=== PATIENT | male | born 1950 | race Caucasian/White ===

== ENCOUNTER → 2018-05-05 10:17 | Outpatient (CLI) | payer MEDICARE, SELFPAY ==
[2018-05-05 10:51] LABS: Add Manual Diff / Slide Review NO; Basophils Percent Auto 0.6 % (0-2); Eosinophils Percent Auto 5.5 % (2-4); Hematocrit 44.9 % (41-53); Hemoglobin 15.4 g/dL (13.5-17.5); Lymphocytes Percent Auto 15.1 % (25-40); Mean Corpuscular HGB Conc 34.3 % (30-36); Mean Corpuscular Hemoglobin 34.1 PG (26-34); Mean Corpuscular Volume 99.5 fL (80-100); Monocytes Percent Auto 8.8 % (3-14); Neutrophils Absolute Auto 4800 /uL (3000-5900); Platelet Count 132 X10^3/uL (150-400); Red Blood Cell Count 4.51 X10^6/uL (4.5-5.9); Red Cell Distribution Width 13.8 % (11.6-14.8); White Blood Cell Count 6.8 X10^3/uL (4.5-11.0)
[2018-05-05 11:04] LABS: Erythrocyte Sedimentation Rate 11 MM/HR (0-15)
[2018-05-05 11:13] LABS: Alanine Aminotransferase 54 IU/L (21-72); Albumin 3.9 g/dL (3.5-5.0); Albumin Globulin Ratio 1.4 (1.0-2.8); Alkaline Phosphatase 88 U/L (38-126); Aspartate Aminotransferase 37 IU/L (17-59); BUN Creatinine Ratio 24.5 (6-22); Bilirubin Total 0.9 mg/dL (0.2-1.3); Blood Urea Nitrogen 27 mg/dL (9-20); Calcium 9.7 mg/dL (8.4-10.2); Carbon Dioxide 31 mmol/L (22-32); Chloride 104 mmol/L (98-107); Cholesterol 156 mg/dL (140-199); Estimated Glomerular Filt Rate > 60.0 mL/min (>60); Globulin 2.8 g/dL (1.7-4.1); Glucose 112 mg/dL (80-110); HDL Cholesterol 40 mg/dL (40-60); HEMOLYSIS < 15 (0-50); LDL Cholesterol Calculated 79 mg/dL (<100); Potassium 4.5 mmol/L (3.4-5.1); Sodium 143 mmol/L (137-145); Total Protein 6.7 g/dL (6.3-8.2); Triglycerides 184 mg/dL (35-150)
[2018-05-05 11:40] LABS: TSH w/ Reflex to FT4 0.19 uIU/mL (0.47-4.68)
[2018-05-05 11:41] LABS: Prostate Specific Antigen Scrn 2.09 ng/mL (0.1-4.0)
[2018-05-05 13:02] LABS: Free T4, Direct Thyroxine 1.65 ng/dL (0.78-2.19)
== END ==
PROVIDERS: PCP Internal Medicine; Visit Provider Internal Medicine
DX: E03.9 Hypothyroidism, unspecified (principal); I25.10 Atherosclerotic heart disease of native coronary artery without angina pectoris; M15.0 Primary generalized (osteo)arthritis
CPT/HCPCS: 36415; 80053; 80061; 84439; 84443; 85025; 85651; G0103

== ENCOUNTER → 2018-06-05 10:25 | Outpatient (CLI) | payer MEDICARE, SELFPAY ==
--- NOTE | 2018-06-05 | DI.RAD.S_ITS ---
PROCEDURE: XR CHEST 2V INDICATIONS: dyspnea TECHNIQUE: 2 views of the chest were acquired. COMPARISON: None. FINDINGS: Surgical changes and devices: Median sternotomy and CABG. Surgical clips right lower neck. Possible clip right upper quadrant. Lungs and pleura: No pleural effusions or pneumothorax. Lungs are clear. Mediastinum: Mediastinal contours are normal. Heart size is normal. Tortuous aorta. Bones and chest wall: No suspicious bony abnormalities. Soft tissues appear unremarkable. IMPRESSION: Postoperative changes, no acute cardiopulmonary abnormality Dictated by: Ayush Gordon M.D. on 06/05/2018 at 10:53 Approved by: Ayush Gordon M.D. on 06/05/2018 at 10:54
--- NOTE | 2018-06-05 | DI.RAD.S_ITS ---
PROCEDURE: XR KNEE LT 3V INDICATIONS: knee pain TECHNIQUE: 3 views of the knee were acquired. COMPARISON: None. FINDINGS: Bones: No fractures or dislocations. No suspicious bony lesions. Degenerative hip joint space narrowing and marginal spurring in all 3 compartments. Soft tissues: No joint effusion. No suspicious soft tissue calcifications. IMPRESSION: 1. No joint effusion or acute bony abnormality. 2. Tricompartmental osteoarthritis Dictated by: Ayush Gordon M.D. on 06/05/2018 at 10:56 Approved by: Ayush Gordon M.D. on 06/05/2018 at 10:57
--- NOTE | 2018-06-05 | DI.RAD.S_ITS ---
PROCEDURE: XR HIP W PEL IF DONE BILAT 2V INDICATIONS: hip pain TECHNIQUE: AP pelvis with lateral view(s) of the bilateral hip(s). COMPARISON: None. FINDINGS: Bones: No fractures or dislocations. Pelvic ring appears intact. No suspicious bony lesions. There is moderate, symmetrical degenerative hip joint disease with narrowing and marginal spurring. Soft tissues: The visualized bowel gas pattern is normal. No suspicious soft tissue calcifications. IMPRESSION: No acute bony abnormality. Bilateral grade 2 degenerative hip joint disease. Dictated by: Ayush Gordon M.D. on 06/05/2018 at 10:54 Approved by: Ayush Gordon M.D. on 06/05/2018 at 10:56
== END ==
PROVIDERS: Family Provider Internal Medicine; PCP Internal Medicine; Visit Provider Internal Medicine
DX: M16.0 Bilateral primary osteoarthritis of hip (principal); R06.00 Dyspnea, unspecified; M17.12 Unilateral primary osteoarthritis, left knee; M25.562 Pain in left knee
CPT/HCPCS: 71046; 73521; 73562

== ENCOUNTER → 2018-06-06 14:51 | Outpatient (CLI) | payer MEDICARE, SELFPAY ==
--- NOTE | 2018-06-13 08:16 | PM.PFT.1 ---
Pulmonary Function Test Referral & Results Date Patient Seen: 06/06/18 Requesting provider: Meet Umaña Indication: COPD Results: The spirometry demonstrates an FVC of 2.3 L which is 46% of predicted. The FEV1 was measured at 1.78 L which is 46% of predicted. The FEV1/FVC ratio was 75 which is 100% of predicted. Following the administration of bronchodilator there was 9% improvement in FEV1 and a 30% improvement in FEF 25-75%. Lung volumes show an SVC of 2.65 L which is 51% of predicted. The diffusing capacity was measured at 26.59 which is 70% of predicted. No hemoglobin value was provided, so no correction for potential anemia could be made, if appropriate. The maximum voluntary ventilation was reduced. Interpretation: This study demonstrates moderately severe obstructive lung disease with significant reduction in FEV1 although there was some limited improvement following bronchodilator based primarily on improvement in FEF 25-75% thus suggesting small airway flow improvement There is also moderate restrictive lung disease present based on reduction in lung volumes There is also reduction in diffusing capacity suggesting some element of disease at the capillary alveolar level Altogether this is consistent with a diagnosis of COPD Clinical correlation suggested
--- NOTE | 2018-06-13 08:19 | P.PFT.S_ITS ---
Pulmonary Function Test Referral & Results Date Patient Seen: 06/06/18 Requesting provider: Meet Umaña Indication: COPD Results: The spirometry demonstrates an FVC of 2.3 L which is 46% of predicted. The FEV1 was measured at 1.78 L which is 46% of predicted. The FEV1/FVC ratio was 75 which is 100% of predicted. Following the administration of bronchodilator there was 9% improvement in FEV1 and a 30% improvement in FEF 25-75%. Lung volumes show an SVC of 2.65 L which is 51% of predicted. The diffusing capacity was measured at 26.59 which is 70% of predicted. No hemoglobin value was provided, so no correction for potential anemia could be made, if appropriate. The maximum voluntary ventilation was reduced. Interpretation: This study demonstrates moderately severe obstructive lung disease with significant reduction in FEV1 although there was some limited improvement following bronchodilator based primarily on improvement in FEF 25-75 % thus suggesting small airway flow improvement There is also moderate restrictive lung disease present based on reduction in lung volumes There is also reduction in diffusing capacity suggesting some element of disease at the capillary alveolar level Altogether this is consistent with a diagnosis of COPD Clinical correlation suggested
== END ==
PROVIDERS: Family Provider Internal Medicine; PCP Internal Medicine; Visit Provider Internal Medicine
DX: J44.9 Chronic obstructive pulmonary disease, unspecified (principal)
CPT/HCPCS: 94010; 94060; 94726; 94729

== ENCOUNTER → 2018-06-24 10:06 | Outpatient (CLI) | payer MEDICARE, SELFPAY ==
--- NOTE | 2018-06-24 | DI.CT.S_ITS ---
PROCEDURE: CT CHEST HIGH RESOLUTION INDICATIONS: RESTRICTIVE LUNG DISEASE. SHORT OF BREATH TECHNIQUE: Noncontrast 1.0 and 5.0 mm thick contiguous axial sections from the pulmonary apex to the posterior costophrenic angles, with 7 mm thick coronal and sagittal MIP reformats. 1 mm thick dynamic expiratory images acquired through the upper, mid, and lower lungs. 1.0 mm thick axial sections acquired from the ty to the posterior costophrenic angles in the prone end-inspiration position. For radiation dose reduction, the following was used: automated exposure control, adjustment of mA and/or kV according to patient size. COMPARISON: None. FINDINGS: Image quality: Excellent. Lungs: No acute consolidation. No areas of honeycombing are identified. There are scattered areas of presumed postinflammatory nonspecific scarring/atelectasis, primarily within the lingula and right middle lobe. There is central bronchial wall no definite bronchiectasis seen. Airways appear grossly patent. No definite mosaic lung attenuation. No tree in bud opacities are seen. thickening. Mild cephalization suggestive of chronic pulmonary venous hypertension. Pleura: No pleural effusions or pneumothorax. Mediastinum: Heart size is normal. There are coronary artery calcifications. No pericardial effusion. Thoracic aorta and central pulmonary arteries are normal in size. Esophagus is normal in caliber. Bones and chest wall: No suspicious bony lesions. No vertebral body compression fractures. Abdomen: Visualized upper abdominal solid organs and bowel loops appear normal. IMPRESSION: Mild scattered nonspecific postinflammatory scarring/atelectasis in the anterior lung bases. No areas of honeycombing are seen. Central bronchial wall thickening suggestive of reactive airways disease or nonspecific bronchitis. Coronary artery disease. Dictated by: Jose Angel Veliz M.D. on 06/24/2018 at 13:23 Approved by: Jose Angel Veliz M.D. on 06/24/2018 at 13:28
== END ==
PROVIDERS: Family Provider Internal Medicine; PCP Internal Medicine; Visit Provider Internal Medicine
DX: J98.4 Other disorders of lung (principal); R06.02 Shortness of breath; I25.10 Atherosclerotic heart disease of native coronary artery without angina pectoris
CPT/HCPCS: 71250

== ENCOUNTER → 2018-07-22 11:59 | Outpatient (CLI) | payer MEDICARE, SELFPAY ==
--- NOTE | 2018-07-22 | DI.MRI.S_ITS ---
PROCEDURE: MR LUMBAR SPINE WO CON INDICATIONS: SPINAL STENOSIS OF LUMBAR REGION TECHNIQUE: Noncontrast sagittal T1 spin echo and T2 fast echo, sagittal STIR, axial T1 and T2 fast spin echo through the lumbar spine. In cases with scoliosis, additional coronal T2 fast spin echo may be performed. COMPARISON: None. FINDINGS: Image quality: Mild motion degraded examination. Alignment and Curvature: Trace retrolisthesis of L1 on L2 and L2 on L3. Grade 1 retrolisthesis of L3 on L4. Bone Marrow: Marrow is of normal overall signal. No acute vertebral body compression fractures. Chronic appearing mild anterior wedging of T12 which could be physiologic. Spinal Cord: Conus medullaris terminates at the T12-L1 level. Visualized cord demonstrates normal signal and size. Paraspinous Soft Tissues: No paravertebral masses. There is dependent subcutaneous edema seen at the level of L3-S1 L1-L2: Posterior annular fissure is seen. There is superimposed small left paracentral disc protrusion as well as bilateral facet disease. Minimal central canal narrowing. There is asymmetric partial effacement of the left lateral recess. Mild bilateral foraminal narrowing. L2-L3: Mild broad-based posterior disc bulge and bilateral facet arthropathy. Postsurgical changes related to L2 laminectomy. No residual high-grade canal stenosis is seen. Moderate-severe left foraminal stenosis. Mild right foraminal narrowing. L3-L4: Broad-based posterior disc bulge and bilateral facet arthropathy. Dorsal epidural fat is also present resulting in severe canal narrowing. Bilateral symmetric left and right lateral recess narrowing is also present. Mild left and severe right foraminal stenosis L4-L5: Broad-based posterior disc bulge and bilateral facet disease. There is mild dorsal and ventral epidural fat resulting in [id number] canal narrowing. There is symmetric narrowing of the left and right lateral recess. Moderate left and moderate to severe right foraminal narrowing L5-S1: Broad-based posterior disc bulge and bilateral facet disease. Prominent dorsal epidural fat is seen, with associated severe canal narrowing. There is effacement of both lateral recesses due to epidural fat. Severe left and right foraminal stenoses IMPRESSION: Multilevel lumbar disc degeneration and facet arthropathy with prominent epidural lipomatosis primarily from the level of L3-S1. Severe canal stenosis at L3-L4 and L5-S1, contributed in part by prominent epidural fat. Moderate to severe left L2-L3 foraminal stenosis. Severe right L3-L4 foraminal stenosis. Moderate to severe bilateral L4-L5 foraminal stenoses, right greater than left. Severe bilateral L5-S1 foraminal stenoses. Status post L2 laminotomy. Dictated by: Jose Angel Veliz M.D. on 07/22/2018 at 14:33 Approved by: Jose Angel Veliz M.D. on 07/22/2018 at 14:45
== END ==
PROVIDERS: PCP Internal Medicine; Visit Provider Orthopaedic Surgery
DX: M48.061 Spinal stenosis, lumbar region without neurogenic claudication (principal); M51.36 Other intervertebral disc degeneration, lumbar region; M51.37 Other intervertebral disc degeneration, lumbosacral region; M47.816 Spondylosis without myelopathy or radiculopathy, lumbar region; M48.07 Spinal stenosis, lumbosacral region; E88.2 Lipomatosis, not elsewhere classified
CPT/HCPCS: 72148

== ENCOUNTER → 2019-05-12 08:29 | Outpatient (CLI) | payer MEDICARE, SELFPAY ==
[2019-05-12 09:27] LABS: Add Manual Diff / Slide Review NO; Basophils Absolute Auto 0 /uL (0-100); Basophils Percent Auto 0.6 % (0-2); Eosinophils Absolute Auto 400 /uL (0-450); Eosinophils Percent Auto 5.8 % (2-4); Hematocrit 44.7 % (41-53); Hemoglobin 15.3 g/dL (13.5-17.5); Lymphocytes Absolute Auto 1300 /uL (1100-4500); Lymphocytes Percent Auto 20.8 % (25-40); Mean Corpuscular HGB Conc 34.2 % (30-36); Mean Corpuscular Volume 99.6 fL (80-100); Monocytes Absolute Auto 600 /uL (0-900); Monocytes Percent Auto 8.5 % (3-14); Neutrophils Absolute Auto 4200 /uL (1500-7000); Neutrophils Percent Auto 64.3 % (50-75); Platelet Count 141 X10^3/uL (150-400); Red Blood Cell Count 4.49 X10^6/uL (4.5-5.9); Red Cell Distribution Width 14.1 % (11.6-14.8); White Blood Cell Count 6.5 X10^3/uL (4.5-11.0)
[2019-05-12 10:03] LABS: Alanine Aminotransferase 43 IU/L (21-72); Albumin 4.1 g/dL (3.5-5.0); Albumin Globulin Ratio 1.2 (1.0-2.8); Alkaline Phosphatase 108 U/L (38-126); Aspartate Aminotransferase 37 IU/L (17-59); BUN Creatinine Ratio 19.1 (6-22); Bilirubin Total 0.7 mg/dL (0.2-1.3); Blood Urea Nitrogen 21 mg/dL (9-20); Calcium 9.3 mg/dL (8.4-10.2); Carbon Dioxide 27 mmol/L (22-32); Chloride 105 mmol/L (98-107); Cholesterol 146 mg/dL (140-199); Estimated Glomerular Filt Rate > 60.0 mL/min (>60); Globulin 3.3 g/dL (1.7-4.1); Glucose 109 mg/dL (80-110); HDL Cholesterol 30 mg/dL (40-60); HEMOLYSIS < 15 (0-50); LDL Cholesterol Calculated 62 mg/dL (<100); Potassium 4.3 mmol/L (3.4-5.1); Sodium 141 mmol/L (137-145); Total Protein 7.4 g/dL (6.3-8.2); Triglycerides 271 mg/dL (35-150)
[2019-05-12 10:28] LABS: TSH w/ Reflex to FT4 0.03 uIU/mL (0.47-4.68)
[2019-05-12 11:13] LABS: Free T4, Direct Thyroxine 1.23 ng/dL (0.78-2.19)
== END ==
PROVIDERS: PCP Internal Medicine; Visit Provider Internal Medicine
DX: I25.10 Atherosclerotic heart disease of native coronary artery without angina pectoris (principal); M15.0 Primary generalized (osteo)arthritis; E78.00 Pure hypercholesterolemia, unspecified; E66.9 Obesity, unspecified; N18.9 Chronic kidney disease, unspecified; E03.9 Hypothyroidism, unspecified
CPT/HCPCS: 36415; 80053; 80061; 84439; 84443; 85025

== ENCOUNTER 2019-06-02 10:19 | Inpatient (IN) | payer MEDICARE, SELFPAY ==
[2019-05-28 11:32] VITALS: BMI 38.4
[2019-06-02] VITALS (15 sets, daily range): BP systolic 107–148; BP diastolic 64–91; PULSE 63–69; RESP 12–18; TEMP 35.6–37.1; O2SAT 89–98; BMI 38.4
--- NOTE | 2019-06-02 | DI.RAD.S_ITS ---
PROCEDURE: XR LUMBAR SPINE 2-3V INDICATIONS: L4-5 TLIF TECHNIQUE: 3 views of the lumbar spine were acquired. COMPARISON: None. FINDINGS: Spot fluoroscopic images demonstrating L4-L5 posterior spinal fixation and interbody cage graft. There is expected intraoperative alignment. Dictated by: Jose Angel Veliz M.D. on 06/02/2019 at 16:50 Approved by: Jose Angel Veliz M.D. on 06/02/2019 at 16:51
[2019-06-02] MEDS: LACTATED RINGERS 1,000 ML 100 ML IV ×2 (10:39→15:39)
--- NOTE | 2019-06-02 11:53 | PM.PREOP ---
Pre-operative Note Interval Note History & Physical reviewed/Exam performed by Physician: Yes Changes to H&P: No
--- NOTE | 2019-06-02 11:54 | P.OP_ITS ---
Operative Date/Time/Diagnoses Date of procedure: 06/02/19 Time of procedure: 16:30 Pre-op diagnosis: Lumbar stenosis with radiculopathy History of lumbar laminectomy Post-op diagnosis: same Procedure & Clinicians Procedure: L4-5 anterior fusion with cage L4-5 posterior fusion L4, L5 screws Iliac crest bone graft L3-4 laminectomy Use of microscope Same procedure as scheduled: Yes Indications: [age] year old male with intractable pain from stenosis. They had failed conservative management and requested operative intervention. Risks and benefits of surgery were discussed and appropriate consents were obtained. Surgeon: Basilio Mcbride Sander And Buffer: Gertrude Jacobson Anesthesia Type: General Operative Notes Findings: None Closure Type: primary Specimen(s): none sent Prosthetic devices, grafts, tissues, transplants, or devices: NuVasive XLIF Matrix cage and MAS Reline screws Applied: catheter Estimated Blood Loss (mL): 20 Blood products transfused: none Procedure in detail: Patient was brought to the operating room and intubated on the table. Time-out was performed. They were then rolled over to the lateral decubitus position with the [id number]. The table was bent and they were taped down in the correct position. X-rays were taken to confirm a true AP and lateral. Preoperative antibiotics were given. The left flank was prepped and draped in standard sterile fashion. Using fluoroscopy, a 3 cm incision was made above the iliac crest. We bluntly dissected down with Metzenbaum scissors and split the 3 abdominal muscle layers. We dissected out the retroperitoneal space and using finger guidance, brought our 1st dilator down to the psoas muscle. Using neuromonitoring and fluoroscopy, we placed it through the psoas onto the L4-5 disc space in an anterior position and gradually pulled the dilator posteriorly along the disc space. We placed our guidewire and measured our depth for the retractor. We then dilated with the next 2 dilators and then placed our retractor over the dilators. Position was confirmed with fluoroscopy and the retractor was locked down to the bar. We opened up the retractor and checked with neuro monitoring. We then placed the shari and again checked with neuro monitoring. The retractor was opened further and the ALL retractor was placed. An annulotomy was performed. We then performed a complete diskectomy with ring curette, pituitary, box osteotome. A Robert was advanced across the disc space under fluoroscopy to release the lateral annulus on the opposite side. We then used sequentially larger trials and confirmed under fluoroscopy. An XLIF cage was packed with Osteocell bone graft and impacted into the L4-5 disc space with fluoroscopy for the anterior fusion at this level. The wound was irrigated. The retractor was closed down. The shari was removed. We carefully removed the retractor with direct visualization to make sure there was no neurovascular or abdominal injury. Final x-rays were taken. The muscle fascia was closed, superficial tissue was closed. The skin was closed. Sterile dressing was placed. The patient was then rolled over on the well-padded prone position on the Db table. Using fluoroscopy for localization, a 4 cm incision was made to the left of the midline. We used the Bovie to cut through the fascia. We then percutaneously placed Jamshidi needles down the left pedicles of L4 and L5 using fluoroscopy and neuro monitoring. We changed this to guidewires, tapped and then placed our MAS Reline screws. We then went over to the right side. Another 3 cm incision was made on the right side. We used Bovie to split the fascia. We again percutaneously placed Jamshidi needles, a guidewires, tapped, and then our MAS Reline screws into L4 and L5 on the right using fluoroscopy and neural monitoring. The wounds were copiously irrigated. We dissected down to the gutter at L45 and exposed the transverse processes on the left. These were decorticated with a bur. A small stab incision was made over the PSIS and a Jamshidi needle was placed into the iliac crest and several mL of bone marrow was aspirated. This was mixed with 15ml of bone chips as well as the remaining Osteocell and placed in the posterolateral gutter for fusion at L4-5. We then used our left-sided incision and dilators to approach the L3-4 space. We opened up our MaXcess retractor and cleared off the soft tissue. A marker was placed and x-ray was used to confirm positioning at L3-4. We then brought in the microscope. A laminectomy was performed at L3-4 with a bur and Kerrison rongeurs. There was a large amount of epidural lipomatosis combined with some mild scar from his previous laminectomies. We carefully depressed the dura to reach to the opposite side and decompress the entire yissel tral canal. We cleared out the neural foramen. In the end the ball probe could be placed cephalad and caudally across to the opposite side in the foramen and everything was opened. The retractor was closed down and removed. The fascia was closed. Vancomycin powder was placed in the wound. The superficial and skin were closed. Sterile dressing was placed. The patient was then rolled over, extubated, brought to the recovery room with no complications. Complications: none Condition: stable Disposition: PACU Plan for aftercare: Inpatient. Up with physical therapy.
[2019-06-02] MEDS: CEFAZOLIN VIAL 3 GM in SODIUM CHLORIDE 0.9% 100 ML 200 ML IV (12:45)
--- NOTE | 2019-06-02 13:41 | SUR.OPER ---
Lateral on padded OR bed, head on pillow, gel axillary roll in place, bottom leg bent with gel pad under knee to foot, upper leg bent and supported with pillows. Upper arm supported by pillows and secured over bottom arm to padded arm board. Safety belt at hip, tape over blanket lower legs.
--- NOTE | 2019-06-02 13:42 | SUR.OPER ---
Prone on spine table, head in foam head support, padded chest and pelvic supports, gel pad at knees, lower legs supported by pillows; nipples, genitalia and toes free of pressure, arms secured on foam padded arm boards at <90 degrees abduction. Tape over blanket at thigh secured to table.
[2019-06-02] MEDS: SODIUM CHLORIDE 0.9% 1,000 ML, GENTAMICIN 80 MG IRR (13:55)
[2019-06-02] MEDS: BUPIVACAINE 0.5% (PF) 20 ML, BUPIVACAINE LIPOSOME 266 MG INJ (13:56)
[2019-06-02] MEDS: THROMBIN (RECOMBINANT) 5,000 UNIT VIAL 5000 UNIT TOP (14:00)
--- NOTE | 2019-06-02 17:05 | SUR.OPER ---
Following procedure, noted 2 skin tears on patient's left side of face. First location under left eye approximately 0.75 inches wide. Second location on left medial cheek approximately 1 inch wide.
[2019-06-02] MEDS: OXYCODONE/ACETAMINOPHEN 5/325 TABLET 2 TAB PO (17:21)
[2019-06-02] MEDS: LACTATED RINGERS 1,000 ML 125 ML IV (18:35)
[2019-06-02] MEDS: CELECOXIB 200 MG CAPSULE 400 MG PO (18:57)
[2019-06-02] MEDS: CARVEDILOL 25 MG TABLET PO (21:15)
[2019-06-02] MEDS: SPIRONOLACTONE 25 MG TABLET 12.5 MG PO (21:16)
[2019-06-02] MEDS: CEFAZOLIN 2 GM/100 ML FROZ.PIGGY IV (21:16)
[2019-06-02] MEDS: DOCUSATE 100 MG CAPSULE PO (21:16)
[2019-06-02] MEDS: SENNOSIDES 8.6 MG TABLET 17.2 MG PO (21:16)
[2019-06-02] MEDS: LOSARTAN 50 MG TABLET PO (21:17)
[2019-06-02] MEDS: GABAPENTIN 300 MG CAPSULE PO (21:17)
[2019-06-02] MEDS: OXYCODONE/ACETAMINOPHEN 5/325 TABLET 1 TAB PO (21:42)
[2019-06-03] VITALS (7 sets, daily range): BP systolic 108–139; BP diastolic 65–93; PULSE 57–66; RESP 16–20; TEMP 36.4–36.9; O2SAT 95–98
[2019-06-03] MEDS: LACTATED RINGERS 1,000 ML 125 ML IV ×2 (02:27→10:55)
[2019-06-03] MEDS: OXYCODONE/ACETAMINOPHEN 5/325 TABLET 1 TAB PO ×5 (02:27→20:32)
[2019-06-03] MEDS: CEFAZOLIN 2 GM/100 ML FROZ.PIGGY IV (05:21)
[2019-06-03 06:41] LABS: Hematocrit 41.7 % (41-53); Hemoglobin 14.3 g/dL (13.5-17.5)
[2019-06-03 06:52] LABS: BUN Creatinine Ratio 21.8 (6-22); Blood Urea Nitrogen 24 mg/dL (9-20); Calcium 8.8 mg/dL (8.4-10.2); Carbon Dioxide 28 mmol/L (22-32); Chloride 104 mmol/L (98-107); Estimated Glomerular Filt Rate > 60.0 mL/min (>60); Glucose 145 mg/dL (80-110); HEMOLYSIS < 15 (0-50); Potassium 4.9 mmol/L (3.4-5.1); Sodium 139 mmol/L (137-145)
[2019-06-03] MEDS: LEVOTHYROXINE 125 MCG TABLET 250 MCG PO (07:01)
[2019-06-03] MEDS: LEVOTHYROXINE 25 MCG TABLET 12.5 MCG PO (07:01)
--- NOTE | 2019-06-03 08:02 | PM.PNPO.1 ---
Subjective Date Patient Seen: 06/03/19 Time Patient Seen: 08:02 Interval history: He is doing well. Pain is approximately 2/10. The left leg is feeling better with no more pins and needles and increased sensation. Exam Vital Signs (past 8 hours): - 06/03/19 00:20 06/03/19 04:34 Temperature 97.6 F 97.9 F Pulse Rate 66 63 Respiratory Rate 16 16 Blood Pressure 139/84 108/93 H Pulse Oximetry 98 98 Oxygen Delivery Method CPAP Oxygen Flow Rate 6 Const Orientation: alert and oriented x3 Back/Spine/Pelvis Other: Mild drainage on the right-hand side of the dressing. 5/5 motor both lower extremities Objective Labs Result Diagrams: 06/03/19 06:20 06/03/19 06:20 Labs: Laboratory Results - last 24 hr 06/03/19 06/03/19 06:20 06:20 Hgb 14.3 Hct 41.7 Sodium 139 Potassium 4.9 Chloride 104 Carbon Dioxide 28 BUN 24 H Creatinine 1.10 Estimated GFR > 60.0 BUN/Creatinine Ratio 21.8 Glucose 145 H Calcium 8.8 Assessment & Plan Post-op Postoperative Procedures Operation Date: 06/02/19 12:15 Actual Procedures Side Surgeon p L34 laminectomy, L45 anterior/posterior instrumented fusion w/ bone graft Basilio Mcbride MD He is doing very well. Mobilize with physical therapy today. Anticipate discharge home or Saturday. Recheck BMP tomorrow.
[2019-06-03] MEDS: FUROSEMIDE 40 MG TABLET PO (09:54)
[2019-06-03] MEDS: ATORVASTATIN 20 MG TABLET 80 MG PO (09:54)
[2019-06-03] MEDS: ASPIRIN EC 81 MG TABLET PO (09:54)
[2019-06-03] MEDS: LORATADINE 10 MG TABLET PO (09:55)
[2019-06-03] MEDS: DOCUSATE 100 MG CAPSULE PO ×2 (09:55→20:32)
[2019-06-03] MEDS: CARVEDILOL 25 MG TABLET PO ×2 (09:56→20:33)
[2019-06-03] MEDS: CITALOPRAM 20 MG TABLET PO (09:56)
[2019-06-03] MEDS: CELECOXIB 200 MG CAPSULE PO ×2 (09:56→20:33)
--- NOTE | 2019-06-03 11:03 | CM.DANOTE ---
DCP: Case received, EMR reviewed and met with patient. Introduced self and role. Was able to meet with patient and obtain some baseline health information and living situation. DCP assessment completed with information currently available. Patient is a 68 year old male who admitted yesterday morning to the care of the orthopedic team. PCP: Dr. Umaña. Payer: confirmed: Medicare/[employer]. Patient came to the hospital for a surgical procedure. He had an L4-5 anterior fusion. Patient has had a history of chronic back pain. Met with patient. He was sitting up in bed, pleasant. He feels that he will be ok to go home at discharge. Patient will be working with physical therapy. He stated that he uses a cane at baseline, but also has a FWW available. He has a supportive named Keri. He and his live here in [place]. P: Patient should be able to go home, pending working with physical therapy, and when he is medically stable. Sarina Arroyo RN/Supervisor D[employer] And [employer]ening
--- NOTE | 2019-06-03 11:10 | PT.IIE ---
Current Diagnoses Morbid (severe) obesity due to excess calories (06/02/19) Polyneuropathy, unspecified (06/02/19) Spinal stenosis, lumbar region with neurogenic claudication (06/02/19) Other specified postprocedural states (06/02/19) Surgery Performed Operation Date: 06/02/19 12:15 Actual Procedures p L34 laminectomy, L45 anterior/posterior instrumented fusion w/ bone graft - Basilio Mcbride MD Surgical History (Last Updated 05/28/19 @ 12:00 by Melinda Leal RN) History of arthroplasty of right knee (Acute ~09/2010) History of right-sided carotid endarterectomy (Acute ~04/2014) Hx of cholecystectomy (Acute) Hx of hernia repair (Acute) Hx of laminectomy (Acute) Hx of tonsillectomy (Acute) S/P CABG x 3 (Acute ~04/2014) Medical History (Last Updated 05/28/19 @ 12:45 by Melinda Leal RN) CAD (coronary artery disease) (Acute) CHF (congestive heart failure) (Acute) COPD (chronic obstructive pulmonary disease) (Acute) Depression (Acute) Dyspnea (Acute) Easy bruisability (Acute) HLD (hyperlipidemia) (Acute) HTN (hypertension) (Acute) Hypothyroid (Acute) Ischemic cardiomyopathy (Acute) Lumbar spinal stenosis (Acute) Myocardial infarction, silent (Acute) Numbness and tingling (Acute) PAD (peripheral artery disease) (Acute) Pre-diabetes (Acute) Sleep apnea (Acute) Thin skin (Acute) Physical Therapy Inpatient Evaluation/Re-Eval M1 PT/OT-IP Prior Functional Status Start: 06/03/19 10:41 Freq: NEEDED Status: Active Protocol: Document 06/03/19 09:25 (Rec: 06/03/19 11:10 [email or web address]) Medical Review Prior Functional Status Medical History Reviewed Yes Diet/Fluid Consistency Regular Communication Able to make needs known. No deficits noted. Mobility and Gait Pt states He was mostly homebound and not that physically active due to his ongoing back pain. He was able to amb upto mailbox only with a tripod cane. He had difficulty with balance, bending over and long distance walk. Activities of Daily Living and IADL's Independent with tripod cane for ADLs. He was able to drive . helps with IADLs sometimes. Social History Household Members spouse Living Arrangements House Number of Floors (Floors) Two Floors Number of Stairs To Enter/Railing? No JAILENE 10-12 steps to basement with a landing in between. L rail going down Home Environment High Toilet Walk in Shower Home Equipment Front Wheel Walker Straight Cane Shower Seat with Backrest Long Handled Shoe Horn Grab Bars In Shower Employment Status Retired Additional Social History Comment Pt lives with his in [place] and has a son lives in [place]. Pt's recently had a shoulder sx and currently on a arm sling until 07/11, but pt stated she is very independently and able to assist if needed. M2 PT-IP Current Condition Start: 06/03/19 10:41 Freq: NEEDED Status: Active Protocol: Document 06/03/19 09:25 (Rec: 06/03/19 11:10 [email or web address]) Physical Therapy Current Condition Current Condition Evaluation Date 06/03/19 Treatment Diagnosis L3/4 Laminectomy, L4L5 TLIF, difficulty in walking Onset Date 06/02/19 Precautions Lumbar Precautions Log Roll No Twisting Limit Bending Lifting Restriction of 10 lbs Gait Belt above Incisional Area Weight Bearing Status Weight Bearing Status Weight Bear as Tolerated M3 PT-IP Subjective Start: 06/03/19 10:41 Freq: NEEDED Status: Active Protocol: Document 06/03/19 09:25 (Rec: 06/03/19 11:10 [email or web address]) Subjective Physical Therapy Visit Type Type Initial Evaluation Visit Start Time 09:25 Visit Stop Time 10:00 Total Visit Minutes 35 Notes Per RN, 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 Patient Goals To return home Therapy Pain Assessment Pain When Pain Assessed During Mobility Pain Present Pain Present Pain Reported Location Lower Back Intensity 2 Description Acute Pain Management Techniques Timing of Activity with Medications M4 PT-IP Mobility and Gait Start: 06/03/19 10:41 Freq: NEEDED Status: Active Protocol: Document 06/03/19 09:25 (Rec: 06/03/19 11:10 [email or web address]) PT-Bed Mobility Assessment Rolling Type of Rolling Log Rolling Roll to Right Level of Assist Contact Guard Assistance Supine to Sit Supine to Sit Minimal Assistance 1 Person Assistance Scooting Scooting to Edge of Bed Contact Guard Assistance Scooting Up and Down in Bed Contact Guard Assistance PT-Transfer Assessment Sit to and From Stand Sit to and from Stand Minimal Assistance 1 Person Assistance Use of Upper Extremities Equipment Transfer Assistive Device Gait Belt Front Wheeled Walker Orthotic/Prosthetic Devices or Brace: No Transfers Transfer Destination Bed Chair Transfer Technique Stand Step Pivot Transfer Ability Level of Assist Minimal Assistance 1 Person Assistance Use of Upper Extremities Comments Mobility Comments Pt in bed upon assessemnt. Educated pt regarding log roll method and supine to sit. He required only min A for sidelying to sit at EOB on the R side. He then stood up with proper hand placement on walker and bed. Pt did have excessive sway during standing and required slight tactile feedback to reposition him. Pt also needs cues to use small steps for turns instead of lifting his FWW. Gait Assessment Gait Gait Assistance Required: Contact Guard Assist Distance (Feet) 120 Able to Maintain Weight Bearing Status Yes During Gait Assistive Devices Assistive Device Gait Belt Front Wheeled Walker Orthotic/Prosthetic Devices or Brace: No Gait Deviations General Gait Pattern Decreased Stride Length Decreased Feet Clearance Lateral Trunk Lean Factors Limiting Gait Function Factors Limiting Gait Function Decreased Activity Tolerance Decreased Sensation Decreased Strength Limited Range of Motion Pain Poor Balance Poor Safety Awareness Comments Gait Comments Pt amb from his room to elevator with CGA and FWW. Pt demonstrates lateral sway similar to a trendenlenberg gait bilaterally. He did present LOB at the begining of the gait training with posterior lean. Tactile cues was given on his upper back to reposition himself. PT-Balance Assessment Sitting Balance and Reactions Static Sitting Balance Ability Normal Dynamic Sitting Balance Ability Normal Standing Balance and Reactions Static Standing Balance Ability Good Dynamic Standing Balance Ability Fair Device Used FWW M5 PT-IP Objective Assessments Start: 06/03/19 10:41 Freq: NEEDED Status: Active Protocol: Document 06/03/19 09:25 (Rec: 06/03/19 11:10 [email or web address]) Orientation Orientation/Cognition Level of Alertness Alert Orientation Name Age Birthday Month Date Year Day of Week Place Situation Language Function Ability No Deficits Noted Safety Awareness Understands Safety Issues Memory Description No Deficits Noted Gross Range of Motion Upper Extremity ROM Assessment Within Functional Limits Lower Extremity ROM Assessment Within Functional Limits Strength Upper Extremity Strength Assessment Within Functional Limits Lower Extremity Strength Assessment Within Functional Limits Coordination Assessment Gross Coordination Gross Coordination WNL Sensation Assessment Sensation Gross Sensation Left UE Impaired Light Touch Impaired Sensation Description Numbness Comments Sensation Comments reports of numbness/ decreased sensitivity to light touch at L proximal thigh. Muscle Tone Muscle Tone WNL Yes M6 PT-IP Treatment Start: 06/03/19 10:41 Freq: NEEDED Status: Active Protocol: Document 06/03/19 09:25 HH (Rec: 06/03/19 11:10 [email or web address]) Physical Therapy Treatment Exercises Exercises Ankle Pumps Gluteal Sets Quad Sets Heel Slides Education Education Provided Precautions Weight Bearing Status Post-Op Packet Safety M7 PT-IP Assessment and Plan Start: 06/03/19 10:41 Freq: NEEDED Status: Active Protocol: Document 06/03/19 09:25 HH (Rec: 06/03/19 11:10 [email or web address]) PT Summary Assessment and Plan Potential Rehabilitation Potential Excellent Status of Condition at Evaluation Stable Summary Impairments Pain ROM Strength Balance Sensation Bed Mobility Transfers Gait Activity Tolerance Assessment Summary Pt is a low complexity who is s/p L3/4 laminectomy and L4/5 TLIF yesterday. Upon assessment, pt only needed min A for bed mobility and transfers, and CGA for gait training for 120 ft. He was wobbly for the first few steps after he stood up from EOB but he was able to recover with tactile cues. However, pt stated he is currently better than his PLOF since his balance, strength and sensation have improved significantly since sx. (pt was only able to amb 50-70 at a time prior to sx) Expects pt to return home with 's assistance once he reaches rehab goals. Goals Bed Mobility Goal Independent Transfer Goal Independent Front Wheeled Walker Gait Goal Independent Front Wheel Walker Gait Distance 300 Other Goals log roll and supine to sit independently. Days to Meet Goals 5 Frequency of Treatment Frequency Of Treatment Twice a Day Treatment Plan Physical Therapy Treatment Plan Bed Mobility Training Transfer Training Gait Training Therapeutic Exercise Balance Retraining Post Op Education Discharge Planning Hot or Cold Pack Neuromuscular Re-ed Other Recommendations and Next Treatment log roll and supine to sit Focus transfer and gait training as phong Recommendations To Nursing Amount of Assist Needed 1 Person Assist Discharge Recommendations PT Discharge Recommendations Home with Assistance
--- NOTE | 2019-06-03 13:33 | OT.IP.EVAL ---
Current Diagnoses Morbid (severe) obesity due to excess calories (06/02/19) Polyneuropathy, unspecified (06/02/19) Spinal stenosis, lumbar region with neurogenic claudication (06/02/19) Other specified postprocedural states (06/02/19) Surgery Performed Operation Date: 06/02/19 12:15 Actual Procedures p L34 laminectomy, L45 anterior/posterior instrumented fusion w/ bone graft - Basilio Mcbride MD Past Medical History (Last Updated 05/28/19 @ 12:45 by Melinda Leal RN) CAD (coronary artery disease) (Acute) CHF (congestive heart failure) (Acute) COPD (chronic obstructive pulmonary disease) (Acute) Depression (Acute) Dyspnea (Acute) Easy bruisability (Acute) HLD (hyperlipidemia) (Acute) HTN (hypertension) (Acute) Hypothyroid (Acute) Ischemic cardiomyopathy (Acute) Lumbar spinal stenosis (Acute) Myocardial infarction, silent (Acute) Numbness and tingling (Acute) PAD (peripheral artery disease) (Acute) Pre-diabetes (Acute) Sleep apnea (Acute) Thin skin (Acute) Surgical History (Last Updated 05/28/19 @ 12:00 by Melinda Leal RN) History of arthroplasty of right knee (Acute ~09/2010) History of right-sided carotid endarterectomy (Acute ~04/2014) Hx of cholecystectomy (Acute) Hx of hernia repair (Acute) Hx of laminectomy (Acute) Hx of tonsillectomy (Acute) S/P CABG x 3 (Acute ~04/2014) Occupational Therapy Inpatient Evaluation/Re-Eval M1 PT/OT-IP Prior Functional Status Start: 06/03/19 10:41 Freq: NEEDED Status: Active Protocol: Document 06/03/19 13:33 RICHI (Rec: 06/03/19 17:48 [email or web address] [email or web address]) Medical Review Prior Functional Status Medical History Reviewed Yes Diet/Fluid Consistency Regular Communication WNL Mobility and Gait Pt states he was mostly homebound and not that physically active due to his ongoing back pain. He was able to walk up to mailbox only with a tripod cane. He had difficulty with balance, bending over and walking long distances. Activities of Daily Living and IADL's Independent with self care except struggled to don socks and usually di not wear them, He uses long shoe horn to assist with donning shoes. Pt assists with light IADLS as back pain permits and drives. Prior Functional Level (Other details) Pt's recently had L shoulder surgery and will be in sling until 07/11/19. She is indep with with all self care and light IADLS per pt. Social History Household Members spouse Living Arrangements House Number of Floors (Floors) Two Floors Number of Stairs To Enter/Railing? no stairs to enter, pt can stay on main level of home Home Environment High Toilet Walk in Shower Home Equipment Front Wheel Walker Quad Cane Shower Seat with Backrest Hand Held Shower Long Handled Shoe Horn Grab Bars In Shower Employment Status Retired M2 OT-IP Current Condition Start: 06/03/19 11:50 Freq: Status: Active Protocol: Document 06/03/19 13:33 PJM (Rec: 06/03/19 17:48 PJM [email or web address]) Occupational Therapy Current Condition Current Condition Evaluation Date 06/03/19 Treatment Diagnosis decreased self care, mobility s/p L 3-4 lami, L 4-5 ant/post fusion Diagnosis Onset Date 06/02/19 Post Operative Precautions Lumbar Precautions Log Roll No Twisting Limit Bending Lifting Restriction of 10 lbs Gait Belt above Incisional Area M3 OT- IP Subjective and Pain Start: 06/03/19 11:50 Freq: Status: Active Protocol: Document 06/03/19 13:33 PJM (Rec: 06/03/19 17:48 PJM [email or web address]) OT- Subjective Occupational Therapy Visit Type Type Initial Evaluation Visit Start Time 13:05 Visit Stop Time 13:33 Total Visit Minutes 28 Notes not here this session Occupational Therapy Visit Comments Patient Comments I can't believe how good I feel today. Patient/Caregiver Goals to be able to walk longer distances so he can get out of the house more OT Pain Assessment Pain When Pain Assessed After Treatment Pain Present Pain Present Pain Reported Location Lower Back Intensity 2 Scale Used Numeric (1 - 10) Description Aching Acute M4 OT- IP ADL's Start: 06/03/19 11:50 Freq: Status: Active Protocol: Document 06/03/19 13:33 PJM (Rec: 06/03/19 17:48 PJM [email or web address]) OT [id number] General Evaluation Self-Feeding Ability Independent OT ADL-Grooming General Evaluation Grooming Ability Standby Assistance Areas Needing Assistance Retrieving/Set-up of Grooming Items Comments OT Grooming Comments after set up in bed or chair OT ADL-Oral Care General Eval Oral Care Ability Standby Assistance Comments Oral Care Comments after set up in bed or chair OT ADL-Dressing General Eval Upper Body Dressing Ability Standby Assistance Lower Body Dressing Ability Maximum Assistance Areas Needing Assistance Pants/Shorts Socks Shoes Comments OT Dressing Comments Began education re: use of life coach and sock aide for lower body dressing within spine precautions. OT ADL-Toileting General Evaluation Toileting Ability Total Assistance Areas Needing Assistance Empty Catheter or Colostomy Comments OT Toileting Comments cali still in place OT ADL-Bathing Comments OT Bathing Comments to be assessed as activity tolerance improves, recommend long bath sponge, pt has all other necessary bathroom safety equipt M5 OT- IP IADL's Start: 06/03/19 11:50 Freq: Status: Active Protocol: Document 06/03/19 13:33 PJM (Rec: 06/03/19 17:48 PJ [email or web address]) OT-Instrumental Activities of Daily Living Deficits IADL Deficits Identified Deficits Home Safety Awareness Awareness of Need for Assistance at Home Good Awareness Ability to Problem Solve Emergency Able to Problem Solve Situations Medication Management Medication Management No Deficits Identified Money Management Money Management No Deficits Identified Meal Preparation Meal Preparation Caregiver Provides Assist Meal Preparation Comments can assist PRN Advertising Coordinator Advertising Coordinator Comments can do light housework as needed Driving Driving Caregiver Provides Assist Driving Comments can provide transport per pt M6 OT- IP Functional Cognition Start: 06/03/19 11:50 Freq: Status: Active Protocol: Document 06/03/19 13:33 PJM (Rec: 06/03/19 17:48 PJ [email or web address]) Cognitive Factors Limiting Selfcare Function Cognitive Ability Level of Alertness Alert Patient Orientation Name Age Birthday Month Date Year Day of Week Place Situation Attention Span Ability Capable of Focused Attention Capable of Sustained Attention Ability to Follow Commands Able to Follow One Step Commands Able to Follow Multi-Step Commands Memory Description No Deficits Noted Safety Awareness No Deficits Noted Executive Function Ability No Deficits Noted Cognitive Comments Cognitive Assessment Comments Pt verbalizes 3/3 lumbar precautions and asking appropriate questions about adapted ADL techniques. OT- Vision and Hearing OT- Hearing Assessment OT- Hearing Assessment WFL OT- Vision Assessment Visual Acuity WFL Glasses For Reading Vision Assessment Comments Pt denies any recent changes. M7 OT- IP Mobility and Balance Start: 06/03/19 11:50 Freq: Status: Active Protocol: Document 06/03/19 13:33 PJM (Rec: 06/03/19 17:48 PJM [email or web address]) OT-Transfer Assessment Comments Mobility Comments see P.T. notes, pt declines OOB this session due to fatigue from 2 previous P.T. tx's today OT- Gait Assessment Comments Gait Ability Comments see P.T. OT- Balance Assessment Comments Other Balance Tests/Deviations/Treatment see P.T. notes : M8 OT- IP Objective Assessments Start: 06/03/19 11:50 Freq: Status: Active Protocol: Document 06/03/19 13:33 PJM (Rec: 06/03/19 17:48 PJM [email or web address]) OT Strength Upper Extremity Strength Assessment Within Functional Limits OT- Coordination Assessment Comments Coordination Comments BUE WFL OT-Muscle Tone Assessment Muscle Tone WNL Yes OT Sensation Assessment Comments Summary Comments BUE WNL per pt Edema Edema Absent M9 OT- IP Assessment and Plan Start: 06/03/19 11:50 Freq: Status: Active Protocol: Document 06/03/19 13:33 PJM (Rec: 06/03/19 17:48 PJM [email or web address]) OT Summary Assessment and Plan Potential Rehabilitation Potential Excellent Analytic Complexity at Evaluation Low Summary OT Impairments Pain Functional Mobility Grooming Dressing Toileting Bathing Toilet Transfers Shower Transfers Assessment Summary Low complexity OT assessment completed with emphasis on new lumbar spine precautions. Began education re: posture, body mechanics, adapted ADL techniques and resources for dressing equipt. Pt plans to order equipt on line. Pt currently has mild performance deficits in standing grooming , lower body dressing, bathing and toileting. Plan 1-2 additional OT visits here to address the goals below. Anticipate pt will d/c home with when medically stable and clears P.T. Goals Grooming Goal Independent Dressing Goal Independent Long Handled Shoe Horn Toileting Goal Independent Bathing Goal Standby Assistance Grab Bars Hand Held Shower Sprayer Long Handled Sponge or [place] Toilet Transfer Goal Independent ADA High Toilet Shower Transfer Goal Standby Assistance Walk-in Shower Shower Chair Grab Bars Patient/Caregiver Education Goal Demonstrate Post-Op Precautions Demonstrate Energy Conservation and Pacing Caregiver Independent Assisting Patient OT-Other Goals Grooming to be done standing at sink with goos safety awareness. Days to Meet Goals 1 Frequency of Treatment Frequency Of Treatment Once a Day Treatment Plan OT Treatment Plan ADL Training Functional Mobility Patient/Family Education Discharge Planning Discharge Recommendations OT Discharge Recommendations Home with Assistance Home Equipment Needs life coach, wide sock aid, long bath sponge, ? toilet paper aid
[2019-06-03] MEDS: Fluticasone Furoate-Vilanterol [Breo Ellipta] 1 EACH INHALATION (14:22)
--- NOTE | 2019-06-03 14:46 | PT.IPTN ---
Current Diagnoses Morbid (severe) obesity due to excess calories (06/02/19) Polyneuropathy, unspecified (06/02/19) Spinal stenosis, lumbar region with neurogenic claudication (06/02/19) Other specified postprocedural states (06/02/19) Surgery Performed Operation Date: 06/02/19 12:15 Actual Procedures p L34 laminectomy, L45 anterior/posterior instrumented fusion w/ bone graft - Basilio Mcbride MD Physical Therapy Treatment Note M2 PT-IP Current Condition Start: 06/03/19 10:41 Freq: NEEDED Status: Active Protocol: Document 06/03/19 09:25 HH (Rec: 06/03/19 11:10 [email or web address]) Physical Therapy Current Condition Current Condition Evaluation Date 06/03/19 Treatment Diagnosis L3/4 Laminectomy, L4L5 TLIF, difficulty in walking Onset Date 06/02/19 Precautions Lumbar Precautions Log Roll No Twisting Limit Bending Lifting Restriction of 10 lbs Gait Belt above Incisional Area Weight Bearing Status Weight Bearing Status Weight Bear as Tolerated M3 PT-IP Subjective Start: 06/03/19 10:41 Freq: NEEDED Status: Active Protocol: Document 06/03/19 14:37 GGD (Rec: 06/03/19 14:46 GGD [id number]) Subjective Physical Therapy Visit Type Type Treatment Note Visit Start Time 14:05 Visit Stop Time 14:31 Total Visit Minutes 26 Physical Therapy Visit Comments Patient Comments Pt willing to work with therapy. Therapy Pain Assessment Pain When Pain Assessed During Mobility Pain Present Pain Present Pain Reported Location Lower Back Intensity 2 Scale Used Numeric (1 - 10) M4 PT-IP Mobility and Gait Start: 06/03/19 10:41 Freq: NEEDED Status: Active Protocol: Document 06/03/19 14:37 GGD (Rec: 06/03/19 14:46 GGD [id number]) PT-Bed Mobility Assessment Rolling Type of Rolling Log Rolling Roll to Right Level of Assist Contact Guard Assistance Supine to Sit Supine to Sit Contact Guard Assistance 1 Person Assistance Sit to Supine Sit to Supine Contact Guard Assistance 1 Person Assistance Scooting Scooting to Edge of Bed Standby Assistance PT-Transfer Assessment Sit to and From Stand Sit to and from Stand Contact Guard Assistance 1 Person Assistance Use of Upper Extremities Equipment Transfer Assistive Device Gait Belt Front Wheeled Walker Orthotic/Prosthetic Devices or Brace: No Transfers Transfer Destination Bed Transfer Ability Level of Assist Contact Guard Assistance 1 Person Assistance Use of Upper Extremities Gait Assessment Gait Gait Assistance Required: Contact Guard Assist Distance (Feet) 220 Able to Maintain Weight Bearing Status Yes During Gait Assistive Devices Assistive Device Gait Belt Front Wheeled Walker Orthotic/Prosthetic Devices or Brace: No Gait Deviations General Gait Pattern Decreased Stride Length Decreased Feet Clearance Lateral Trunk Lean Factors Limiting Gait Function Factors Limiting Gait Function Decreased Activity Tolerance Decreased Sensation Decreased Strength Limited Range of Motion Pain Poor Balance Poor Safety Awareness M5 PT-IP Objective Assessments Start: 06/03/19 10:41 Freq: NEEDED Status: Active Protocol: Document 06/03/19 09:25 HH (Rec: 06/03/19 11:10 [email or web address]) Orientation Orientation/Cognition Level of Alertness Alert Orientation Name Age Birthday Month Date Year Day of Week Place Situation Language Function Ability No Deficits Noted Safety Awareness Understands Safety Issues Memory Description No Deficits Noted Gross Range of Motion Upper Extremity ROM Assessment Within Functional Limits Lower Extremity ROM Assessment Within Functional Limits Strength Upper Extremity Strength Assessment Within Functional Limits Lower Extremity Strength Assessment Within Functional Limits Coordination Assessment Gross Coordination Gross Coordination WNL Sensation Assessment Sensation Gross Sensation Left UE Impaired Light Touch Impaired Sensation Description Numbness Comments Sensation Comments reports of numbness/ decreased sensitivity to light touch at L proximal thigh. Muscle Tone Muscle Tone WNL Yes M6 PT-IP Treatment Start: 06/03/19 10:41 Freq: NEEDED Status: Active Protocol: Document 06/03/19 14:37 GGD (Rec: 06/03/19 14:46 GGD [id number]) Physical Therapy Treatment Exercises Exercises Ankle Pumps Education Education Provided Precautions Safety M7 PT-IP Assessment and Plan Start: 06/03/19 10:41 Freq: NEEDED Status: Active Protocol: Document 06/03/19 14:37 GGD (Rec: 06/03/19 14:46 GGD [id number]) PT Summary Assessment and Plan Summary Assessment Summary Pt improving with mobility. He needed less assist with bed mobility. He need cues for safe sit <> stand. He was unsteading with gait and intial stand, but no LOB. Pt need cues for hand placement. He was able to recall 3/3 precautions. Frequency of Treatment Frequency Of Treatment Twice a Day Treatment Plan Physical Therapy Treatment Plan Bed Mobility Training Transfer Training Gait Training Therapeutic Exercise Balance Retraining Post Op Education Discharge Planning Hot or Cold Pack Neuromuscular Re-ed Recommendations To Nursing Amount of Assist Needed 1 Person Assist Discharge Recommendations PT Discharge Recommendations Home with Assistance
[2019-06-03] MEDS: LOSARTAN 50 MG TABLET PO (20:32)
[2019-06-03] MEDS: SPIRONOLACTONE 25 MG TABLET 12.5 MG PO (20:33)
[2019-06-03] MEDS: GABAPENTIN 300 MG CAPSULE PO (20:33)
[2019-06-03] MEDS: SENNOSIDES 8.6 MG TABLET 17.2 MG PO (20:33)
[2019-06-04 00:57] VITALS: BP 106/64; PULSE 61; RESP 18; TEMP 36.6; O2SAT 96
[2019-06-04] MEDS: OXYCODONE/ACETAMINOPHEN 5/325 TABLET 1 TAB PO ×3 (00:58→09:29)
--- NOTE | 2019-06-04 01:13 | PC.NURSE ---
Addendum entered by Macey Bartlett R.N. 06/04/19 05:26: Catheter d'cd as per protocol. Tolerated procedure well. Instructed in sx/prevention of UTI. Medicated with Percocet for complaint of 3/10 back pain. Original Note: Patient is alert and oriented. Breath sounds CTA with RA sat of 96% with CPAP on. HRR. Denies nausea. BT present and abdomen is soft although large; normal per patient. Indwelling catheter is patent; urine is dark yellow. Able to turn self in bed. Dressing/SS to back is intact with serosanguinous drainage noted and outlined. Dressing to left hip is CDI. CMS is intact. Does have trace edema bilateral LE. Wearing foot SCD's. Patient reports fall in past 3 months, so fall risk score is high and bed alarm is activated.
[2019-06-04 05:00] VITALS: BP 123/67; PULSE 57; RESP 18; TEMP 36.2; O2SAT 97
[2019-06-04] MEDS: LEVOTHYROXINE 25 MCG TABLET 12.5 MCG PO (05:08)
[2019-06-04] MEDS: LEVOTHYROXINE 125 MCG TABLET 250 MCG PO (05:08)
[2019-06-04 06:12] LABS: BUN Creatinine Ratio 26.4 (6-22); Blood Urea Nitrogen 29 mg/dL (9-20); Calcium 8.8 mg/dL (8.4-10.2); Carbon Dioxide 31 mmol/L (22-32); Chloride 104 mmol/L (98-107); Estimated Glomerular Filt Rate > 60.0 mL/min (>60); Glucose 106 mg/dL (80-110); HEMOLYSIS < 15 (0-50); Potassium 4.8 mmol/L (3.4-5.1); Sodium 140 mmol/L (137-145)
--- NOTE | 2019-06-04 07:43 | PM.PNPO.1 ---
Subjective Date Patient Seen: 06/04/19 Time Patient Seen: 07:43 Interval history: He is doing great. Pain 2/10. He has been up and walking with therapy and this has not changed any of his leg symptoms which are still doing well. He is able get in and out of bed by himself Exam Vital Signs (past 8 hours): - 06/04/19 00:57 06/04/19 05:00 Temperature 97.8 F 97.2 F L Pulse Rate 61 57 L Respiratory Rate 18 18 Blood Pressure 106/64 123/67 Pulse Oximetry 96 97 Oxygen Delivery Method CPAP Oxygen Flow Rate 0 Const Orientation: alert and oriented x3 Back/Spine/Pelvis Other: Moderate dry drainage. 5/5 motor both lower extremities. Objective Labs Result Diagrams: 06/03/19 06:20 06/04/19 05:45 Labs: Laboratory Results - last 24 hr 06/04/19 05:45 Sodium 140 Potassium 4.8 Chloride 104 Carbon Dioxide 31 BUN 29 H Creatinine 1.10 Estimated GFR > 60.0 BUN/Creatinine Ratio 26.4 H Glucose 106 Calcium 8.8 Assessment & Plan Post-op Postoperative Procedures Operation Date: 06/02/19 12:15 Actual Procedures Side Surgeon p L34 laminectomy, L45 anterior/posterior instrumented fusion w/ bone graft Basilio Mcbride MD he is doing great. We are going to mobilize him 1 more time with physical therapy this morning and he is requesting discharge home after this. He has had a slight increase in his BUN. I explained to him that this is probably from third-spacing as he is 3 L up since his admission to the hospital. I anticipate natural diuresis over the next day will fix this.
--- NOTE | 2019-06-04 07:45 | PM.DS.1 ---
History of Present Illness Date Patient Seen: 06/04/19 Time Patient Seen: 07:46 Chief complaint: [id number] Narrative: 68-year-old male with spinal stenosis. He has had 2 previous lumbar surgeries. He has had recurrence of symptoms, primarily with numbness and weakness in the legs any time he walks more than 20 ft. This is been progressing over the past several months. He has gone through physical therapy and epidural injections without relief. He has also lost over 30 lb. Discharge Providers Date of admission: 06/02/19 10:19 Discharge Date: 06/04/19 Primary care physician: Meet Umaña MD Consults: 06/02/19 11:01 Consult to Respiratory Therapy Evaluate & Treat Comment: Physician Instructions: Evaluate and treat 06/02/19 17:58 Consult to Occupational Therapy Evaluate & Treat Comment: Physician Instructions: Evaluate and treat Consult to Physical Therapy Evaluate & Treat Comment: Physician Instructions: Evaluate and Treat Discharge provider: Basilio Mcbride MD Summary Discharge Diagnosis: Lumbar stenosis with radiculopathy Hospital Course: Is brought to the operating room on 06/02/2019 where he underwent a L3-4 laminectomy and L4-5 anterior and posterior instrumented fusion. He did very well. Pain level was only about a 2/10 postoperatively. He was up with physical therapy and by postoperative day 2 was independent with ambulation. He did have a slight bump in his BUN while in the hospital, but he was 3 L up and it was felt that this would resolve with natural diuresis over the next day. Status at Discharge Cognitive/behavioral status at discharge: oriented Functional status at discharge: uses cane/walker Overall status at discharge: patient is progressing back to baseline Exam Vital Signs (past 8 hours): - 06/04/19 00:57 06/04/19 05:00 Temperature 97.8 F 97.2 F L Pulse Rate 61 57 L Respiratory Rate 18 18 Blood Pressure 106/64 123/67 Pulse Oximetry 96 97 Oxygen Delivery Method CPAP Oxygen Flow Rate 0 Const Orientation: alert and oriented x3 Back/Spine/Pelvis Other: Moderate dry drainage. 5/5 motor both lower extremities. Objective Labs Result Diagrams: 06/03/19 06:20 06/04/19 05:45 Labs: Laboratory Results - last 24 hr 06/04/19 05:45 Sodium 140 Potassium 4.8 Chloride 104 Carbon Dioxide 31 BUN 29 H Creatinine 1.10 Estimated GFR > 60.0 BUN/Creatinine Ratio 26.4 H Glucose 106 Calcium 8.8 Discharge Plan Discharge Plan Patient Disposition: Home Discharge comment: Follow-up 1.5 weeks Discharge Med Rec/Prescriptions Prescriptions: New celecoxib [Celebrex] 200 mg Capsule 200 mg PO BID PRN (Reason: pain) Qty: 60 RF: 0 docusate sodium [DOK] 100 mg Capsule 100 mg PO BID PRN (Reason: constipation) Qty: 30 RF: 0 hydroxyzine pamoate 25 mg Capsule 25 mg PO Q4HR PRN (Reason: spasms) Qty: 20 RF: 0 oxycodone-acetaminophen 5-325 mg Tablet 1 tab PO Q4HR PRN (Reason: Pain, Moderate (4-6)) Qty: 30 RF: 0 Continued levothyroxine 175 mcg Tablet 1.5 tab PO DAILY RF: 0 atorvastatin 80 mg Tablet 80 mg PO QAM RF: 0 carvedilol 25 mg Tablet 25 mg PO BID RF: 0 aspirin 81 mg Tablet,Delayed Release (Dr/Ec) 81 mg PO DAILY RF: 0 spironolactone 25 mg Tablet 12.5 mg PO BEDTIME RF: 0 citalopram 20 mg Tablet 20 mg PO DAILY RF: 0 furosemide 20 mg Tablet 40 mg PO QAM RF: 0 losartan 100 mg Tablet 50 mg PO BEDTIME RF: 0 Breo Ellipta 100-25 mcg/dose Blister With Device 1 inh INHALATION DAILY RF: 0 doxylamine succinate 25 mg Tablet 25 mg PO BEDTIME RF: 0 loratadine [Allerclear] 10 mg Tablet 10 mg PO DAILY RF: 0 Discontinued naproxen sodium [Aleve] 220 mg Capsule 440 mg PO QAM RF: 0 Follow up/Referrals: Meet Umaña MD [Primary Care Provider] - Provider Discharge Instructions Diet: Diet as Tolerated Activity: limited BLT 10 lbs max Skin/Wound/Dressing Care Report to your healthcare provider any signs of infection, such as:: chills, fever, night sweats, increased pain, unusual drainage and unusual redness Dressing: may change dressing and shower POD#5 Visit Report/Discharge Packet Instructions: DI for Laminectomy, DI for Lateral Lumbar Interbody Fusion Stand Alone Forms: Surgery Discharge Discharge Data Primary Care Provider: Meet Umaña Attending Provider: Basilio Mcbride Admit Date/Time: 06/02/19 10:19
[2019-06-04 08:00] VITALS: BP 117/66; PULSE 58; RESP 16; TEMP 36.1; O2SAT 95
[2019-06-04] MEDS: Fluticasone Furoate-Vilanterol [Breo Ellipta] 1 EACH INHALATION (08:00)
[2019-06-04 08:01] VITALS: BP 117/66
[2019-06-04] MEDS: FUROSEMIDE 40 MG TABLET PO (08:01)
[2019-06-04] MEDS: ASPIRIN EC 81 MG TABLET PO (08:01)
[2019-06-04] MEDS: CARVEDILOL 25 MG TABLET PO (08:01)
[2019-06-04] MEDS: ATORVASTATIN 20 MG TABLET 80 MG PO (08:01)
[2019-06-04] MEDS: CELECOXIB 200 MG CAPSULE PO (08:01)
[2019-06-04] MEDS: LORATADINE 10 MG TABLET PO (08:05)
[2019-06-04] MEDS: DOCUSATE 100 MG CAPSULE PO (08:05)
[2019-06-04] MEDS: CITALOPRAM 20 MG TABLET PO (08:05)
[2019-06-04] MEDS: SODIUM CHLORIDE 0.9% FLUSH 10 ML IV (08:06)
--- NOTE | 2019-06-04 09:05 | PT.IPTN ---
Current Diagnoses Morbid (severe) obesity due to excess calories (06/02/19) Polyneuropathy, unspecified (06/02/19) Spinal stenosis, lumbar region with neurogenic claudication (06/02/19) Other specified postprocedural states (06/02/19) Surgery Performed Operation Date: 06/02/19 12:15 Actual Procedures p L34 laminectomy, L45 anterior/posterior instrumented fusion w/ bone graft - Basilio Mcbride MD Physical Therapy Treatment Note M2 PT-IP Current Condition Start: 06/03/19 10:41 Freq: NEEDED Status: Active Protocol: Document 06/03/19 09:25 HH (Rec: 06/03/19 11:10 [email or web address]) Physical Therapy Current Condition Current Condition Evaluation Date 06/03/19 Treatment Diagnosis L3/4 Laminectomy, L4L5 TLIF, difficulty in walking Onset Date 06/02/19 Precautions Lumbar Precautions Log Roll No Twisting Limit Bending Lifting Restriction of 10 lbs Gait Belt above Incisional Area Weight Bearing Status Weight Bearing Status Weight Bear as Tolerated M3 PT-IP Subjective Start: 06/03/19 10:41 Freq: NEEDED Status: Active Protocol: Document 06/04/19 09:05 GGD (Rec: 06/04/19 10:27 GGD [email or web address]) Subjective Physical Therapy Visit Type Type Treatment Note Visit Start Time 08:53 Visit Stop Time 09:07 Total Visit Minutes 14 Number of [employer] SUPERVISOR Visits 1 Physical Therapy Visit Comments Patient Comments Pt willing to work with therapy. Therapy Pain Assessment Pain When Pain Assessed During Mobility Pain Present Pain Present Pain Reported Location Lower Back Intensity 1 Scale Used Numeric (1 - 10) M4 PT-IP Mobility and Gait Start: 06/03/19 10:41 Freq: NEEDED Status: Active Protocol: Document 06/04/19 09:05 GGD (Rec: 06/04/19 10:27 GGD [email or web address]) PT-Transfer Assessment Sit to and From Stand Sit to and from Stand Contact Guard Assistance 1 Person Assistance Use of Upper Extremities Equipment Transfer Assistive Device Gait Belt Front Wheeled Walker Orthotic/Prosthetic Devices or Brace: No Transfers Transfer Destination Chair Transfer Ability Level of Assist Contact Guard Assistance 1 Person Assistance Use of Upper Extremities Gait Assessment Gait Gait Assistance Required: Standby Assistance Contact Guard Assist Distance (Feet) 220 Able to Maintain Weight Bearing Status Yes During Gait Assistive Devices Assistive Device Gait Belt Front Wheeled Walker Orthotic/Prosthetic Devices or Brace: No Gait Deviations General Gait Pattern Decreased Stride Length Decreased Feet Clearance Lateral Trunk Lean Factors Limiting Gait Function Factors Limiting Gait Function Decreased Activity Tolerance Decreased Sensation Decreased Strength Limited Range of Motion Pain Poor Balance Poor Safety Awareness M5 PT-IP Objective Assessments Start: 06/03/19 10:41 Freq: NEEDED Status: Active Protocol: Document 06/03/19 09:25 (Rec: 06/03/19 11:10 [email or web address]) Orientation Orientation/Cognition Level of Alertness Alert Orientation Name Age Birthday Month Date Year Day of Week Place Situation Language Function Ability No Deficits Noted Safety Awareness Understands Safety Issues Memory Description No Deficits Noted Gross Range of Motion Upper Extremity ROM Assessment Within Functional Limits Lower Extremity ROM Assessment Within Functional Limits Strength Upper Extremity Strength Assessment Within Functional Limits Lower Extremity Strength Assessment Within Functional Limits Coordination Assessment Gross Coordination Gross Coordination WNL Sensation Assessment Sensation Gross Sensation Left UE Impaired Light Touch Impaired Sensation Description Numbness Comments Sensation Comments reports of numbness/ decreased sensitivity to light touch at L proximal thigh. Muscle Tone Muscle Tone WNL Yes M6 PT-IP Treatment Start: 06/03/19 10:41 Freq: NEEDED Status: Active Protocol: Document 06/04/19 09:05 GGD (Rec: 06/04/19 10:27 GGD [email or web address]) Physical Therapy Treatment Exercises Exercises Ankle Pumps Education Education Provided Precautions Safety M7 PT-IP Assessment and Plan Start: 06/03/19 10:41 Freq: NEEDED Status: Active Protocol: Document 06/04/19 09:05 GGD (Rec: 06/04/19 10:27 GGD [email or web address]) PT Summary Assessment and Plan Summary Assessment Summary Pt improving with mobility, stability and safety. He had improved balance with gait and transfers. He did need min cues for safety with transfers . Pt safe for home D/C when medically stable. Frequency of Treatment Frequency Of Treatment Twice a Day Treatment Plan Physical Therapy Treatment Plan Bed Mobility Training Transfer Training Gait Training Therapeutic Exercise Balance Retraining Post Op Education Discharge Planning Hot or Cold Pack Neuromuscular Re-ed Recommendations To Nursing Amount of Assist Needed 1 Person Assist Discharge Recommendations PT Discharge Recommendations Home with Assistance
--- NOTE | 2019-06-04 10:26 | OT.IP.TRT ---
Current Diagnoses Morbid (severe) obesity due to excess calories (06/02/19) Polyneuropathy, unspecified (06/02/19) Spinal stenosis, lumbar region with neurogenic claudication (06/02/19) Other specified postprocedural states (06/02/19) Surgery Performed Operation Date: 06/02/19 12:15 Actual Procedures p L34 laminectomy, L45 anterior/posterior instrumented fusion w/ bone graft - Basilio Mcbride MD Occupational Therapy Treatment Note M3 OT- IP Subjective and Pain Start: 06/03/19 11:50 Freq: Status: Active Protocol: Document 06/04/19 10:26 PJM (Rec: 06/04/19 16:07 PJM [email or web address]) OT- Subjective Occupational Therapy Visit Type Type Treatment Note Visit Start Time 09:22 Visit Stop Time 10:26 Total Visit Minutes 64 Notes Pt's here for education this session. Occupational Therapy Visit Comments Patient Comments I feel good today. A shower would be great. Patient/Caregiver Goals to be able to golf OT Pain Assessment Pain When Pain Assessed After Treatment Pain Present Pain Present Pain Reported Location Lower Back Intensity 2 Description Aching Acute Management Techniques Distraction Re-positioning Timing of Activity with Medications M4 OT- IP ADL's Start: 06/03/19 11:50 Freq: Status: Active Protocol: Document 06/04/19 10:26 PJM (Rec: 06/04/19 16:07 PJM [email or web address]) OT ADL-Oral Care Comments Oral Care Comments provided education re: body mechanics when standing at sink OT ADL-Dressing General Eval Upper Body Dressing Ability Independent Lower Body Dressing Ability Minimal Assistance Areas Needing Assistance Underpants/Brief Pants/Shorts Socks Shoes Assistive Devices Dressing Assistive Devices Long Handled Shoe Horn Dehairer Sock Aid Comments OT Dressing Comments Pt needs min assist with socks using wide sock aid and shoes with long shoe horn due to tight fit. Pt needs min assist to get pants over feet with colleter and CGA for balance while pulling pants over hips. demonstrating ability to assist pt PRN despite having R arm in sling. Pt has potential to be more indep with self are with adaptive equipt with additional practice at home. Provided education re: optimal shoe selection. OT ADL-Toileting General Evaluation Toileting Ability Independent Comments OT Toileting Comments provided education re: body mechanics and pt declines need for toilet paper aid OT ADL-Bathing Bathing Type Bathing Type Shower General Evaluation Bathing Ability Standby Assistance Areas Needing Assistance Retrieving/Setting Up Items Devices Bathing Equipment Long Handled Sponge or Die Tripper Held Shower Sprayer Shower Chair with Arms Grab Bars Comments OT Bathing Comments pt using colleter with towel to dry lower legs and feet M6 OT- IP Functional Cognition Start: 06/03/19 11:50 Freq: Status: Active Protocol: Document 06/04/19 10:26 PJM (Rec: 06/04/19 16:07 PJ [email or web address]) Cognitive Factors Limiting Selfcare Function Cognitive Comments Cognitive Assessment Comments Pt verbalizes and demonstrates understanding of lumbar precautions with occasional cues to avoid twisting. M7 OT- IP Mobility and Balance Start: 06/03/19 11:50 Freq: Status: Active Protocol: Document 06/04/19 10:26 PJM (Rec: 06/04/19 16:07 PJ [email or web address]) OT-Transfer Assessment Sit to and From Stand Sit to and from Stand Standby Assistance Contact Guard Assistance Technique Transfer Destination Car Chair Shower Stall Transfer Technique Stand Step Pivot Devices Transfer Assistive Devices Front Wheeled Walker Comments Mobility Comments pt CGA to transfer into shower stall with grab bars as per home set up; provided education re: car transfer technique OT- Gait Assessment Gait Gait Assistance Required: Standby Assistance Distance (Feet) 20 Assistive Devices Assistive Device Front Wheeled Walker OT- Balance Assessment Sitting Balance and Reactions Static Sitting Balance Ability Good Dynamic Sitting Balance Ability Good Standing Balance and Reactions Static Standing Balance Ability Good Dynamic Standing Balance Ability Fair Comments Other Balance Tests/Deviations/Treatment pt mildly unsteady when : pulling pants over hips M9 OT- IP Assessment and Plan Start: 06/03/19 11:50 Freq: Status: Active Protocol: Document 06/04/19 10:26 PJM (Rec: 06/04/19 16:07 PJ [id number]) OT Summary Assessment and Plan Potential Rehabilitation Potential Good Summary Progress Towards Goals Safe For Discharge Goals Met Assessment Summary All OT goals achieved for this admission and family education completed with pt/ today. will obtain colleter and wide sock aid for pt online. Long bath sponge provided. Frequency of Treatment Frequency Of Treatment Discharge Discharge Recommendations OT Discharge Recommendations Home with Assistance
--- NOTE | 2019-06-04 11:57 | PC.NURSE ---
DISCHARGE: LATE ENTRY: PATIENT AND SPOUSE VERBALIZE UNDERSTANDING OF ALL DC INSTRUCTIONS. SCRIPTS WERE PROVIDED TO PATIENT. DRSGS WERE CHANGED TO COVERSITES. INCISIONS WELL APPROXIMATED, NO ERYTHEMA OR EDEMA. NO ACTIVE DRAINAGE. PATIENT ESCORTED TO VEHICLE IN WC W/ PROCESS COACH ESCORT WITHOUT S/SX'S OF DISTRESS.
== END 2019-06-04 10:30 | disposition home or self-care (01) | DRG 454 ==
PROVIDERS: Admitting Provider Orthopaedic Surgery; PCP Internal Medicine; Visit Provider Orthopaedic Surgery
PROC: 0SG00A0 Fusion of Lumbar Vertebral Joint with Interbody Fusion Device, Anterior Approach, Anterior Column, Open Approach (ICD-10-PCS; CPT 22558; principal; 2019-06-02 12:15)
DX: M48.062 Spinal stenosis, lumbar region with neurogenic claudication (principal); Z68.41 Body mass index [BMI] 40.0-44.9, adult; G62.9 Polyneuropathy, unspecified; E66.01 Morbid (severe) obesity due to excess calories; Z95.1 Presence of aortocoronary bypass graft; I25.10 Atherosclerotic heart disease of native coronary artery without angina pectoris; I73.9 Peripheral vascular disease, unspecified; F17.210 Nicotine dependence, cigarettes, uncomplicated; J44.9 Chronic obstructive pulmonary disease, unspecified; E03.9 Hypothyroidism, unspecified; E78.5 Hyperlipidemia, unspecified
CPT/HCPCS: 36415; 72100; 76000; 80048; 85014; 85018; 94640; 94762; 97116; 97161; 97165; 97530; 97535; C1776; C9290; J0330; J0690; J1100; J1170; J2250; J2405; J2704; J3010

== ENCOUNTER → 2019-07-23 08:44 | Outpatient (CLI) | payer MEDICARE, SELFPAY ==
[2019-06-02 18:43] VITALS: BMI 38.4
--- NOTE | 2019-07-23 | DI.US.S_ITS ---
PROCEDURE: US ABD AORTA ANEURYSM SCREEN INDICATIONS: SCREENING FOR CARDIOVASCULAR DISORDER TECHNIQUE: Real time scanning was performed of the aorta and iliac arteries, with image documentation. COMPARISON: Chest CT 06/24/2018. FINDINGS: Aorta: Proximal aortic diameter measures 3 cm. Mid-aorta measures 2.1 cm. Distal aortic diameter is 1.9 cm. Iliac arteries: Right common iliac artery measures 1.5 cm. Left common iliac artery measures 1.5 cm. No free fluid. 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 Follow up ultrasound in 3 years is recommended to demonstrate stability, if other imaging of the aorta is not performed in the interval. Dictated by: Mal Del Cid M.D. on 07/23/2019 at 11:07 Approved by: Mal Del Cid M.D. on 07/23/2019 at 11:11
--- NOTE | 2019-07-23 | DI.US.S_ITS ---
PROCEDURE: US CAROTID DOPPLER BI INDICATIONS: SCREENING FOR CARDIOVASCULAR DISORDER TECHNIQUE: Color and pulse Doppler interrogation was performed of both carotid systems, with image documentation and velocity measurements. COMPARISON: Chest CT 06/24/2018. FINDINGS: Stenosis calculations are based on SRU (Society of Radiologists in Ultrasound) criteria. Right side: Brachial blood pressure: 108/71 mm Hg. Common carotid artery peak systolic velocity: 98 cm/sec. Internal carotid artery peak systolic velocity: 92 cm/sec. Internal carotid artery end diastolic velocity: 44 cm/sec. External carotid artery peak systolic velocity: 85 cm/sec. ICA/CCA peak systolic ratio: 0.94. Herman scale imaging description: No significant atherosclerotic plaque. Percent internal carotid artery stenosis: Less than 50% stenosis. Vertebral artery: Flow cannot be identified. Left side: Brachial blood pressure: 104/68 mm Hg. Common carotid artery peak systolic velocity: 83 cm/sec. Internal carotid artery peak systolic velocity: 65 cm/sec. Internal carotid artery end diastolic velocity: 21 cm/sec. External carotid artery peak systolic velocity: 72 cm/sec. ICA/CCA peak systolic ratio: 0.78. Herman scale imaging description: Mild calcified atherosclerotic plaque. Percent internal carotid artery stenosis: Less than 50% stenosis. Vertebral artery: Flow direction is antegrade. IMPRESSION: 1. Less than 50% stenosis in the bilateral ICA. 2. Flow in the right vertebral artery is not identified. Favor poor visualization over occlusion. Left vertebral artery is patent and antegrade. Dictated by: Mal Del Cid M.D. on 07/23/2019 at 11:30 Approved by: Mal Del Cid M.D. on 07/23/2019 at 11:35
== END ==
PROVIDERS: PCP Internal Medicine; Visit Provider Internal Medicine
DX: Z13.6 Encounter for screening for cardiovascular disorders (principal); I65.23 Occlusion and stenosis of bilateral carotid arteries
CPT/HCPCS: 76706; 93880

== ENCOUNTER → 2019-07-27 12:46 | Outpatient (CLI) | payer MEDICARE, SELFPAY ==
[2019-06-02 18:43] VITALS: BMI 38.4
--- NOTE | 2019-07-27 | DI.CT.S_ITS ---
PROCEDURE: CT LUMBAR SPINE WO CON INDICATIONS: Arthrodesis status TECHNIQUE: Noncontrast 3 mm thick sections acquired from the T12 level to the sacrum. Sagittal and coronal reformats were constructed. For radiation dose reduction, the following was used: automated exposure control. COMPARISON: [facility], MR, MR LUMBAR SPINE WO CON, 07/22/2018, 12:27. [facility] [place], CR, XR LUMBAR SPINE 2 OR 3 VIEWS, 07/15/2019, 14:31. FINDINGS: Image quality: Excellent. Bones: Posterior fusion is present at L4-5 with intervertebral spacer. There is no visualized hardware fracture or periprosthetic loosening. No osseous fractures or dislocations. No osseous lesions are identified. Trace retrolisthesis is present at L1 and L2, L2 on L3, L3 on L4. Severe disc space narrowing with reactive endplate changes are present in L1-L2, moderate L2-3, L3-4 and L5-S1. Disc bulges are present at L1-L2, L2-3, L3-4 and L5-S1. Left paracentral protrusion at L1-L2 is again noted, although better appreciated on prior MRI. Laminectomy changes are present at L2. Minimal spinal stenosis is present and L1-L2. Left hemilaminectomy changes are noted at L3 with resolution of previous severe spinal stenosis. Mild bilateral foraminal narrowing is noted at right L1, mild to moderate left L1, slightly progressive, moderate to severe left and mild right L2, unchanged, severe right and mild left L3-4 are unchanged, moderate to severe right and moderate left L4-5 unchanged, severe bilateral foraminal narrowing L5-S1, unchanged. Soft tissues: No retroperitoneal masses or hematomas. Visualized aorta is normal in caliber. IMPRESSION: 1. Posterior fusion L4-5 as above. Hardware is intact. 2. Postsurgical changes as well as improvement of previous spinal stenosis at L3-4. 3. Multilevel foraminal narrowing overall relatively stable/minimally progressive compared to prior exam. Dictated by: Desi Alves M.D. on 07/27/2019 at 17:23 Approved by: Desi Alves M.D. on 07/27/2019 at 17:29
== END ==
PROVIDERS: PCP Internal Medicine; Visit Provider Orthopaedic Surgery
DX: M48.061 Spinal stenosis, lumbar region without neurogenic claudication (principal); M48.07 Spinal stenosis, lumbosacral region; Z98.1 Arthrodesis status
CPT/HCPCS: 72131

== ENCOUNTER → 2019-08-05 17:34 | Outpatient (CLI) | payer MEDICARE, SELFPAY ==
[2019-06-02 18:43] VITALS: BMI 38.4
--- NOTE | 2019-08-05 | DI.MRI.S_ITS ---
PROCEDURE: MR THORACIC SPINE WO CON INDICATIONS: UNSTEADINESS ON FEET TECHNIQUE: Noncontrast sagittal T1 spine echo and T2 fast spin echo, sagittal STIR, axial T1 and T2 fast spin echo through the thoracic spine. COMPARISON: [facility], CT, CT LUMBAR SPINE WO CON, 07/27/2019, 12:57. FINDINGS: Image quality: Excellent. Alignment and Curvature: There is normal bony alignment. Bone Marrow: Marrow is of normal overall signal. No acute vertebral body compression fractures. Mild chronic compressions of T11 and T12. T3 hemangioma. Spinal Cord: Visualized spinal cord is normal in size and signal. Paraspinous Soft Tissues: No paravertebral masses. Miscellaneous: At T11-T12, there is posterior disc plus osteophyte. There is also facet and ligament hypertrophy. This results in moderate canal stenosis. Moderate right foraminal narrowing. There is no associated cord signal abnormality. There is prominent multilevel right facet and ligament hypertrophy. This results in moderate or severe right foraminal narrowing at T2-T3 through T10-T11. Multilevel left facet and ligament hypertrophy results in moderate multilevel foraminal narrowing from T2-T3 through T10-T11. IMPRESSION: 1. There is moderate central canal stenosis at T11-T12. 2. Prominent multilevel facet and ligament hypertrophy, right greater than left, results in multilevel thoracic foraminal narrowing as described above. Dictated by: Shay Florentino M.D. on 08/06/2019 at 8:28 Approved by: Shay Florentino M.D. on 08/06/2019 at 8:38
== END ==
PROVIDERS: PCP Internal Medicine; Visit Provider Orthopaedic Surgery
DX: M48.04 Spinal stenosis, thoracic region (principal); R26.81 Unsteadiness on feet; M48.062 Spinal stenosis, lumbar region with neurogenic claudication
CPT/HCPCS: 72146

== ENCOUNTER → 2019-08-10 13:36 | Outpatient (CLI) | payer MEDICARE, SELFPAY ==
[2019-06-02 18:43] VITALS: BMI 38.4
[2019-08-10 15:34] LABS: Folate 17.9 ng/mL (2.76-20.0); Vitamin B12 767 pg/mL (239-931)
== END ==
PROVIDERS: PCP Internal Medicine; Visit Provider Orthopaedic Surgery
DX: G62.89 Other specified polyneuropathies (principal)
CPT/HCPCS: 36415; 82607; 82746

== ENCOUNTER → 2019-09-14 11:05 | Outpatient (CLI) | payer MEDICARE, SELFPAY ==
[2019-06-02 18:43] VITALS: BMI 38.4
[2019-09-14 12:00] LABS: Add Manual Diff / Slide Review NO; Basophils Absolute Auto 0 /uL (0-100); Basophils Percent Auto 0.6 % (0-2); Eosinophils Absolute Auto 300 /uL (0-450); Hematocrit 44.7 % (41-53); Hemoglobin 15.2 g/dL (13.5-17.5); Lymphocytes Absolute Auto 1300 /uL (1100-4500); Lymphocytes Percent Auto 19.2 % (25-40); Mean Corpuscular HGB Conc 34.1 % (30-36); Mean Corpuscular Hemoglobin 33.5 PG (26-34); Mean Corpuscular Volume 98.1 fL (80-100); Monocytes Absolute Auto 600 /uL (0-900); Monocytes Percent Auto 8.4 % (3-14); Neutrophils Absolute Auto 4700 /uL (1500-7000); Neutrophils Percent Auto 67.8 % (50-75); Platelet Count 143 X10^3/uL (150-400); Red Blood Cell Count 4.55 X10^6/uL (4.5-5.9); Red Cell Distribution Width 13.9 % (11.6-14.8); White Blood Cell Count 6.9 X10^3/uL (4.5-11.0)
[2019-09-14 12:10] LABS: Blood Urea Nitrogen 27 mg/dL (9-20)
== END ==
PROVIDERS: PCP Internal Medicine; Visit Provider Orthopaedic Surgery
DX: Z01.818 Encounter for other preprocedural examination (principal); Z01.812 Encounter for preprocedural laboratory examination; R79.89 Other specified abnormal findings of blood chemistry
CPT/HCPCS: 36415; 84520; 85025; 93005

== ENCOUNTER 2019-09-25 11:58 | Day surgery (SDC) | payer MEDICARE, SELFPAY ==
[2019-06-02 18:43] VITALS: BMI 38.4
[2019-09-22 10:51] VITALS: BMI 41.6
[2019-09-25] VITALS (14 sets, daily range): BP systolic 121–150; BP diastolic 64–90; PULSE 59–69; RESP 10–20; TEMP 35.8–36.5; O2SAT 88–96; BMI 41.6
--- NOTE | 2019-09-25 | DI.RAD.S_ITS ---
PROCEDURE: XR LUMBAR SPINE 2-3V INDICATIONS: T11-L1 LAMI TECHNIQUE: 4 views of the lumbar spine were acquired. COMPARISON: [facility] [place], CR, XR LUMBAR SPINE 2 OR 3 VIEWS, 07/15/2019, 14:31. [facility], CR, XR LUMBAR SPINE 2-3V, 06/02/2019, 13:44. FINDINGS: Upper pelvic images demonstrating surgical instrumentation with the tips projecting at the T11-T12, and T12-L1 level Dictated by: Jose Angel Veliz M.D. on 09/25/2019 at 14:49 Approved by: Jose Angel Veliz M.D. on 09/25/2019 at 14:51
[2019-09-25] MEDS: LACTATED RINGERS 1,000 ML 42 ML IV ×2 (12:53→14:37)
--- NOTE | 2019-09-25 12:56 | PM.PREOP ---
Pre-operative Note Interval Note History & Physical reviewed/Exam performed by Physician: Yes Changes to H&P: No
--- NOTE | 2019-09-25 13:02 | PM.OP.1 ---
Operative Date/Time/Diagnoses Date of procedure: 09/25/19 Time of procedure: 15:21 Pre-op diagnosis: Thoracic stenosis with myelopathy Post-op diagnosis: same Procedure & Clinicians Procedure: T11-12, T12-L1 laminectomies Use of microscope Placement of an epidural catheter Same procedure as scheduled: Yes Indications: [age] year old male with myelopathy from stenosis. They had failed conservative management and requested operative intervention. Risks and benefits of surgery were discussed and appropriate consents were obtained. Surgeon: Basilio Mcbride Run Boat Operator: Joseluis Tony Anesthesia Type: General Operative Notes Findings: None Closure Type: primary Specimen(s): none sent Applied: catheter Estimated Blood Loss (mL): 20 Blood products transfused: none Procedure in detail: Patient was brought to the operating room and intubated on the table. They were rolled over on the well-padded prone position on the Db table. A time-out was performed. Preoperative antibiotics were given. The back was prepped and draped in standard sterile fashion. Using fluoroscopy for localization, a 8 cm incision was made in the midline. We used Bovie to dissect through the lumbodorsal fascia and then subperiosteally dissect the paraspinal muscles off both sides. A marker was placed and x-ray was taken to confirm positioning. We then brought in the microscope. A laminectomy was performed at T11-12 and T12-L1 using a rongeur, a bur, and Kerrisons. We removed the facet hypertrophy and the large amount of epidural lipomatosis. At the end, we could reach with the nerve hook cephalad and caudally and to the foramen and everything was opened. The wound was irrigated. An epidural catheter was prepared with 8 mL of 0.25% Marcaine and 100 mcg of fentanyl. The dura was carefully depressed and the catheter was advanced 6 cm cephalad underneath remaining lamina without resistance. The fascia was then closed in layers. The epidural catheter was injected without complications. Vancomycin powder was placed in the wound. The superficial and the skin were closed. Sterile dressing was placed. Patient was rolled over extubated brought to recovery room with no complications. Complications: none Post-operative Condition: stable Disposition: PACU Plan for aftercare: Observation with bed. Anticipate 1-2 nights in the hospital.
[2019-09-25] MEDS: CEFAZOLIN 2 GM/100 ML FROZ.PIGGY IV ×2 (13:28→20:07)
[2019-09-25] MEDS: SODIUM CHLORIDE 0.9% 1,000 ML, GENTAMICIN 80 MG IRR (14:04)
[2019-09-25] MEDS: VANCOMYCIN 1,000 MG VIAL 1000 MG TOP (14:04)
[2019-09-25] MEDS: BUPIVACAINE 0.25% (PF) 8 ML, fentaNYL 100 MCG INJ (14:04)
[2019-09-25] MEDS: THROMBIN (RECOMBINANT) 5,000 UNIT VIAL 5000 UNIT TOP (14:05)
--- NOTE | 2019-09-25 16:13 | SUR.PHASEI ---
Pt. alert and awake at this time, offered ice chips, pt. accepted. Elevated HOB up for ease of swallow with ice chips. CPAP in place and on pt, O2 sats 95% and greater. Pt. denies pain when asked.
--- NOTE | 2019-09-25 16:45 | SUR.PHASEI ---
patient taken to room 218. Report given to receiving RN Octavia. Patient transferred in stable condition with all belongings.
--- NOTE | 2019-09-25 17:28 | PC.NURSE ---
Pt arrived to room 218 from PACU at approx 1640. A/O. VSS. CPOX on. Denies pain. Foot scd's on. Admission completed. Oriented to room and call system. Urinal placed at bedside. Tolerating reg diet. Pt verbalized he will call for needs. Bed alarm placed on.
[2019-09-25] MEDS: LACTATED RINGERS 1,000 ML 125 ML IV (17:46)
--- NOTE | 2019-09-25 18:51 | PC.NURSE ---
Pt arrived on unit at 1640 A and O x 4, denying pain and VSS. He stated he was hungry and given a regular diet dinner at 1700 which he consumed at 100%. O2 sats on RA usually at 94%. Personal CPAP at bedside. Skin assessment clear but for c/d/i lower back gauze and tegaderm dressing. Pt has not worked with PT.
[2019-09-25] MEDS: OXYCODONE IR 5 MG TABLET PO (19:31)
[2019-09-25] MEDS: LOSARTAN 50 MG TABLET PO (19:58)
[2019-09-25] MEDS: carvediloL 25 MG TABLET PO (20:04)
[2019-09-25] MEDS: SENNOSIDES 8.6 MG TABLET 17.2 MG PO (20:04)
[2019-09-25] MEDS: DOCUSATE 100 MG CAPSULE PO (20:04)
[2019-09-25] MEDS: SPIRONOLACTONE 25 MG TABLET 12.5 MG PO (20:05)
--- NOTE | 2019-09-25 20:47 | PC.NURSE ---
Pt did not bring in his personal doxylamine succinate OTC med for admininstration per [facility]
[2019-09-26] VITALS: BP 142/73; PULSE 73; RESP 20; TEMP 36.4; O2SAT 92
[2019-09-26] MEDS: LACTATED RINGERS 1,000 ML 125 ML IV (01:57)
[2019-09-26] MEDS: KETOROLAC 30 MG/ML VIAL IV (01:57)
[2019-09-26] MEDS: ACETAMINOPHEN 325 MG TABLET 650 MG PO ×2 (01:58→09:44)
[2019-09-26 05:49] VITALS: BP 116/68; PULSE 20; RESP 20; TEMP 36.1; O2SAT 95
[2019-09-26] MEDS: LEVOTHYROXINE 100 MCG TABLET 200 MCG PO (05:51)
[2019-09-26] MEDS: LEVOTHYROXINE 125 MCG TABLET 62.5 MCG PO (05:52)
[2019-09-26] MEDS: CEFAZOLIN 2 GM/100 ML FROZ.PIGGY IV (05:53)
[2019-09-26 06:05] LABS: Hematocrit 41.2 % (41-53); Hemoglobin 14.1 g/dL (13.5-17.5)
[2019-09-26 06:14] LABS: BUN Creatinine Ratio 15.6 (6-22); Blood Urea Nitrogen 25 mg/dL (9-20); Calcium 9.2 mg/dL (8.4-10.2); Carbon Dioxide 29 mmol/L (22-32); Chloride 101 mmol/L (98-107); Estimated Glomerular Filt Rate 43.1 mL/min (>60); Glucose 145 mg/dL (80-110); HEMOLYSIS < 15 (0-50); Potassium 4.8 mmol/L (3.4-5.1); Sodium 138 mmol/L (137-145)
--- NOTE | 2019-09-26 06:55 | PC.NURSE ---
POD 1. DSG to mid back with 1in x 1in shadow drainage. Borders intact. Pt given IV ketorlac x1 with improvement of pain. CMS intact. Pt high fall risk, states I can't really feel my legs. Reinforced fall precautions. CPAP at night. Reinforced activity/post op instuctions.
--- NOTE | 2019-09-26 07:18 | PM.PNPO.1 ---
Subjective Subjective Date Patient Seen: 09/26/19 Time Patient Seen: 07:18 Interval history: He is doing very well. He has been up and out of bed this morning. His legs feel much steadier. Exam Vital Signs (past 8 hours): - 09/26/19 00:00 09/26/19 05:49 Temperature 97.5 F L 97.0 F L Pulse Rate 73 20 L Respiratory Rate 20 20 Blood Pressure 142/73 H 116/68 Pulse Oximetry 92 95 Oxygen Delivery Method CPAP Oxygen Flow Rate 0 Const Orientation: alert and oriented x3 Back/Spine/Pelvis Other: Minimal dry drainage. 5/5 motor both lower extremities Objective Labs Result Diagrams: 09/26/19 05:45 09/26/19 05:45 Labs: Laboratory Results - last 24 hr 09/26/19 09/26/19 05:45 05:45 Hgb 14.1 Hct 41.2 Sodium 138 Potassium 4.8 Chloride 101 Carbon Dioxide 29 BUN 25 H Creatinine 1.60 H Estimated GFR 43.1 L BUN/Creatinine Ratio 15.6 Glucose 145 H Calcium 9.2 Assessment & Plan Post-op Postoperative Procedures: Procedures Operation Date: 09/25/19 13:45 Actual Procedures Side Surgeon p T11-L1 laminectomies Not Applicable Basilio Mcbride MD he is doing well. We are going to mobilize him with physical therapy. If he is still stable and pain under good control than he could discharge home today. May require 1 more day otherwise.
[2019-09-26 07:33] VITALS: PULSE 76
[2019-09-26 07:55] VITALS: BP 123/67; PULSE 58; RESP 20; TEMP 36.2; O2SAT 95
[2019-09-26] MEDS: DOCUSATE 100 MG CAPSULE PO (09:44)
[2019-09-26] MEDS: OXYCODONE IR 5 MG TABLET PO ×2 (09:44→14:02)
[2019-09-26] MEDS: carvediloL 25 MG TABLET PO (09:45)
[2019-09-26] MEDS: ASPIRIN EC 81 MG TABLET PO (09:45)
[2019-09-26] MEDS: ATORVASTATIN 20 MG TABLET 80 MG PO (09:45)
[2019-09-26] MEDS: SODIUM CHLORIDE 0.9% FLUSH 10 ML IV (09:46)
[2019-09-26] MEDS: CITALOPRAM 20 MG TABLET PO (09:46)
[2019-09-26] MEDS: FUROSEMIDE 40 MG TABLET PO (09:46)
--- NOTE | 2019-09-26 10:23 | PT.IIE ---
Current Diagnoses Polyneuropathy, unspecified (09/25/19) Spinal stenosis, thoracic region (09/25/19) Strain of muscle, fascia and tendon of lower back, subsequent encounter (09/25/19) Arthrodesis status (09/25/19) Surgery Performed Operation Date: 09/25/19 13:45 Actual Procedures p T11-L1 laminectomies(Not Applicable) - Basilio Mcbride MD Surgical History (Last Updated 09/22/19 @ 11:02 by Melinda Leal RN) History of arthroplasty of right knee (Acute ~09/2010) History of lumbar fusion (Acute 06/02/19) History of right-sided carotid endarterectomy (Acute ~04/2014) Hx of cholecystectomy (Acute) Hx of hernia repair (Acute) Hx of laminectomy (Acute) Hx of tonsillectomy (Acute) S/P CABG x 3 (Acute ~04/2014) Medical History (Last Updated 05/28/19 @ 12:45 by Melinda Leal RN) CAD (coronary artery disease) (Acute) CHF (congestive heart failure) (Acute) COPD (chronic obstructive pulmonary disease) (Acute) Depression (Acute) Dyspnea (Acute) Easy bruisability (Acute) HLD (hyperlipidemia) (Acute) HTN (hypertension) (Acute) Hypothyroid (Acute) Ischemic cardiomyopathy (Acute) Lumbar spinal stenosis (Acute) Myocardial infarction, silent (Acute) Numbness and tingling (Acute) PAD (peripheral artery disease) (Acute) Pre-diabetes (Acute) Sleep apnea (Acute) Thin skin (Acute) Physical Therapy Inpatient Evaluation/Re-Eval M1 PT/OT-IP Prior Functional Status Start: 09/26/19 09:45 Freq: NEEDED Status: Active Protocol: Document 09/26/19 09:46 NFW (Rec: 09/26/19 10:23 NFW [id number]) Medical Review Prior Functional Status Medical History Reviewed Yes Mobility and Gait Ambulated with SPC when outside of the house. Activities of Daily Living and IADL's Independent in all ADL/IADL's Prior Functional Level (Other details) Patient drove as needed. Walking very limited to no more than 200' at a time with SPC. Any WB would cause tightness/pain into LB. Needed to use grocery cart to lean on. Overall functional activity level has been low with c/o weakness and poor balance. Social History Household Members spouse Living Arrangements House Number of Floors (Floors) One Floor Number of Stairs To Enter/Railing? None Home Environment High Toilet,Walk in Shower Home Equipment Front Wheel Walker,Straight Cane,Grab Bars In Shower Employment Status Retired M2 PT-IP Current Condition Start: 09/26/19 09:45 Freq: NEEDED Status: Active Protocol: Document 09/26/19 09:46 NFW (Rec: 09/26/19 10:23 NF [id number]) Physical Therapy Current Condition Current Condition Evaluation Date 09/26/19 Treatment Diagnosis s/p T12-L1 Laminectomy Precautions Lumbar Precautions Log Roll,No Twisting,Limit Bending,Lifting Restriction of 10 lbs,Gait Belt above Incisional Area Weight Bearing Status Weight Bearing Status Full Weight Bearing M3 PT-IP Subjective Start: 09/26/19 09:45 Freq: NEEDED Status: Active Protocol: Document 09/26/19 09:46 NFW (Rec: 09/26/19 10:23 NF [id number]) Subjective Physical Therapy Visit Type Type Initial Evaluation Visit Start Time 08:56 Visit Stop Time 09:44 Total Visit Minutes 48 Number of SECURITY OPERATIONS MANAGER Visits 0 Physical Therapy Visit Comments Patient Comments Patient reports that he has been up and to the BR a couple of times this morning. He states that he feels much steadier on his feet compared to prior to surgery. Patient Goals Return home with . Therapy Pain Assessment Pain When Pain Assessed At Rest Pain Present Pain Present Pain Reported Location Lower Back Intensity 4 Scale Used Numeric (1 - 10) M4 PT-IP Mobility and Gait Start: 09/26/19 09:45 Freq: NEEDED Status: Active Protocol: Document 09/26/19 09:46 NFW (Rec: 09/26/19 10:23 NF [id number]) PT-Bed Mobility Assessment Rolling Type of Rolling Bilateral Level of Assist Independent Supine to Sit Supine to Sit Standby Assistance,1 Person Assistance Sit to Supine Sit to Supine Standby Assistance,1 Person Assistance Scooting Scooting to Edge of Bed Independent Scooting Up and Down in Bed Minimal Assistance PT-Transfer Assessment Sit to and From Stand Sit to and from Stand Standby Assistance Equipment Transfer Assistive Device Gait Belt,Front Wheeled Walker Orthotic/Prosthetic Devices or Brace: No Transfers Transfer Destination Bed,Chair Gait Assessment Gait Gait Assistance Required: Standby Assistance,1 Person Assist Distance (Feet) 300 Able to Maintain Weight Bearing Status Yes During Gait Assistive Devices Assistive Device Gait Belt,Straight Cane,Front Wheeled Walker Orthotic/Prosthetic Devices or Brace: No Gait Deviations General Gait Pattern Decreased Stride Length, Decreased Feet Clearance, Lateral Trunk Lean,Wide Based Gait Factors Limiting Gait Function Factors Limiting Gait Function Abnormal Tonal Influences, Decreased Activity Tolerance, Decreased Strength, Incoordination,Pain,Poor Balance Comments Gait Comments Patient ambulated in hallway using FWW for balance assist and not support. Pt pleased with is ability to walk more than 100' feet and did not have any recurrence of pain into lumbar spine. Pt reveals ricardo weakness in hips in ambulation has min. heel to toe progression. Ambulation with SPC in right hand reveals accentuation of gait deviations. No assisted device gait changes dramatically with short, shuffle, waddling gait. PT-Balance Assessment Sitting Balance and Reactions Static Sitting Balance Ability Normal Dynamic Sitting Balance Ability Normal Standing Balance and Reactions Static Standing Balance Ability Good Dynamic Standing Balance Ability Fair Device Used FWW Balance Tests Single Limb Standing 2 seconds max on right, none on left Romberg unable Comments Other Balance Tests/Deviations/Treatment Standing, his normal wide : stance, eyes closed - difficult Functional Assessments Other Functional Tests Performed Heel or toe walk - unable M5 PT-IP Objective Assessments Start: 09/26/19 09:45 Freq: NEEDED Status: Active Protocol: Document 09/26/19 09:46 NFW (Rec: 09/26/19 10:23 NFW [id number]) Orientation Orientation/Cognition Level of Alertness Alert Orientation Name,Place,Situation Language Function Ability No Deficits Noted Safety Awareness Understands Safety Issues Memory Description No Deficits Noted Gross Range of Motion Upper Extremity ROM Assessment Within Functional Limits Strength Lower Extremity Strength Assessment Bilaterally Impaired Hip 3/3 in general for Glut med ricardo left weaker than right Knee 5/5 right; 4/5 left Ankle DF 2/5 ricardo. left weaker; PF 3/ 5 left weaker Comments Strength Comments Patient reports that he has a long history of weakness into ankles and just recently was able to actively dorsiflex. Sensation Assessment Sensation Gross Sensation WNL Muscle Tone Muscle Tone WNL Yes M6 PT-IP Treatment Start: 09/26/19 09:45 Freq: NEEDED Status: Active Protocol: Document 09/26/19 09:46 NFW (Rec: 09/26/19 10:23 NFW [id number]) Physical Therapy Treatment Exercises Exercises Gluteal Sets,Quad Sets Education Education Provided Precautions,Safety Other Treatments Other Treatment Performed BP at rest 113/69, pulse 61, O2 95 BP sitting EOB 125/75, pulse 72 M7 PT-IP Assessment and Plan Start: 09/26/19 09:45 Freq: NEEDED Status: Active Protocol: Document 09/26/19 09:46 NFW (Rec: 09/26/19 10:23 NFW [id number]) PT Summary Assessment and Plan Potential Rehabilitation Potential Excellent Status of Condition at Evaluation Stable Summary Impairments Pain,Strength,Balance, Coordination,Gait,Activity Tolerance Progress Towards Goals Progressing Toward Goals Assessment Summary Patient s/p T12/L1 laminectomy and doing well. He is pleased with his ability to walk without have the pain/ weakness recur in his LEs. Pt does have notable pre- existing weakness into BLEs and therefore recommend that he use a FWW to allow him to build up his strength/ endurance safely. He can use his SPC indoors for shorter distances. He could benefit from OP PT for balance/ strength/education of LB care. Recommend one more session this pm then could dc home. Left pt's room with main nurse to take over. Goals Bed Mobility Goal Independent Transfer Goal Independent Gait Goal Independent Gait Distance 400 Days to Meet Goals 2 Frequency of Treatment Frequency Of Treatment Twice a Day Treatment Plan Physical Therapy Treatment Plan Bed Mobility Training,Transfer Training,Gait Training, Therapeutic Exercise,Balance Retraining,Post Op Education, Discharge Planning,Hot or Cold Pack,Neuromuscular Re-ed, Coordination Retraining,Manual Therapy Recommendations To Nursing Amount of Assist Needed Standby Assistance,1 Person Assist Discharge Recommendations PT Discharge Recommendations Home with Assistance
--- NOTE | 2019-09-26 11:54 | OT.IP.EVAL ---
Current Diagnoses Polyneuropathy, unspecified (09/25/19) Spinal stenosis, thoracic region (09/25/19) Strain of muscle, fascia and tendon of lower back, subsequent encounter (09/25/19) Arthrodesis status (09/25/19) Surgery Performed Operation Date: 09/25/19 13:45 Actual Procedures p T11-L1 laminectomies(Not Applicable) - Basilio Mcbride MD Past Medical History (Last Updated 05/28/19 @ 12:45 by Melinda Leal RN) CAD (coronary artery disease) (Acute) CHF (congestive heart failure) (Acute) COPD (chronic obstructive pulmonary disease) (Acute) Depression (Acute) Dyspnea (Acute) Easy bruisability (Acute) HLD (hyperlipidemia) (Acute) HTN (hypertension) (Acute) Hypothyroid (Acute) Ischemic cardiomyopathy (Acute) Lumbar spinal stenosis (Acute) Myocardial infarction, silent (Acute) Numbness and tingling (Acute) PAD (peripheral artery disease) (Acute) Pre-diabetes (Acute) Sleep apnea (Acute) Thin skin (Acute) Surgical History (Last Updated 09/22/19 @ 11:02 by Melinda Leal RN) History of arthroplasty of right knee (Acute ~09/2010) History of lumbar fusion (Acute 06/02/19) History of right-sided carotid endarterectomy (Acute ~04/2014) Hx of cholecystectomy (Acute) Hx of hernia repair (Acute) Hx of laminectomy (Acute) Hx of tonsillectomy (Acute) S/P CABG x 3 (Acute ~04/2014) Occupational Therapy Inpatient Evaluation/Re-Eval M1 PT/OT-IP Prior Functional Status Start: 09/26/19 09:45 Freq: NEEDED Status: Active Protocol: Document 09/26/19 13:39 CGR (Rec: 09/26/19 13:54 CGR [id number]) Medical Review Prior Functional Status Medical History Reviewed Yes Communication Pt is an effective communicator. Mobility and Gait Ambulated with SPC when outside of the house. Activities of Daily Living and IADL's Independent in all ADL/IADL's Prior Functional Level (Other details) Patient drove as needed. Walking very limited to no more than 200' at a time with SPC. Any WB would cause tightness/pain into LB. Needed to use grocery cart to lean on. Overall functional activity level has been low with c/o weakness and poor balance. Pt is mostly home bound. Social History Household Members spouse Living Arrangements House Number of Floors (Floors) One Floor Number of Stairs To Enter/Railing? 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 M2 OT-IP Current Condition Start: 09/26/19 13:39 Freq: Status: Active Protocol: Document 09/26/19 13:39 CGR (Rec: 09/26/19 13:54 CGR [id number]) Occupational Therapy Current Condition Current Condition Evaluation Date 09/26/19 Treatment Diagnosis T11-L1 Lami Diagnosis Onset Date 09/25/19 Post Operative Precautions Lumbar Precautions Log Roll,No Twisting,Limit Bending,Lifting Restriction of 10 lbs,Gait Belt above Incisional Area M3 OT- IP Subjective and Pain Start: 09/26/19 13:39 Freq: Status: Active Protocol: Document 09/26/19 13:39 CGR (Rec: 09/26/19 13:54 CGR [id number]) OT- Subjective Occupational Therapy Visit Type Type Initial Evaluation Visit Start Time 11:16 Visit Stop Time 11:54 Total Visit Minutes 38 Occupational Therapy Visit Comments Patient Comments I could use a review on this stuff (refering to OT). OT Pain Assessment Pain When Pain Assessed At Rest Pain Present Pain Present Pain Reported Location Lower Back Intensity 4 Scale Used Numeric (1 - 10) Management Techniques Modification of Treatment, Timing of Activity with Medications M4 OT- IP ADL's Start: 09/26/19 13:39 Freq: Status: Active Protocol: Document 09/26/19 13:39 CGR (Rec: 09/26/19 13:54 CGR [id number]) OT [id number] Comments OT Self-Feeding Comments Not meal time OT ADL-Grooming General Evaluation Grooming Ability Independent Areas Needing Assistance Retrieving/Set-up of Grooming Items,Face Washing Comments OT Grooming Comments standing at sink OT ADL-Oral Care General Eval Oral Care Ability Independent Areas of Assistance Brushing Teeth Comments Oral Care Comments standing at sink OT ADL-Dressing General Eval Upper Body Dressing Ability Independent Lower Body Dressing Ability Minimal Assistance Comments OT Dressing Comments offered to retrain with hipkit but pt states he remembers how to use it and no need to retrain. OT ADL-Toileting General Evaluation Toileting Ability Independent OT ADL-Bathing Comments OT Bathing Comments Not performed in this session. M5 OT- IP IADL's Start: 09/26/19 13:39 Freq: Status: Active Protocol: Document 09/26/19 13:39 CGR (Rec: 09/26/19 13:54 CGR [id number]) OT-Instrumental Activities of Daily Living Deficits IADL Deficits Identified No Deficits Home Safety Awareness Awareness of Need for Assistance at Home Good Awareness Ability to Problem Solve Emergency Able to Problem Solve Situations Medication Management Medication Management No Deficits Identified Money Management Money Management No Deficits Identified Meal Preparation Meal Preparation Caregiver Provides Assist Web Content Executive Web Content Executive Caregiver Provides Assist Driving Driving Comments Pt understand that he should refrain from driving till he cleared by his doctor. M6 OT- IP Functional Cognition Start: 09/26/19 13:39 Freq: Status: Active Protocol: Document 09/26/19 13:39 CGR (Rec: 09/26/19 13:54 CGR [id number]) Cognitive Factors Limiting Selfcare Function Cognitive Ability Level of Alertness Alert Patient Orientation Name,Age,Birthday,Month,Date, Year,Day of Week,Place, Situation Attention Span Ability Capable of Focused Attention, Capable of Sustained Attention Ability to Follow Commands Able to Follow Multi-Step Commands Memory Description No Deficits Noted Safety Awareness No Deficits Noted Problem Solving Ability No deficits Noted Executive Function Ability No Deficits Noted Abstract Thinking Ability No Deficits Noted OT- Vision and Hearing OT- Hearing Assessment OT- Hearing Assessment WFL OT- Vision Assessment Visual Acuity WFL,Glasses All The Time Visual Attentiveness WFL Occular Pursuits WFL Visual Convergence WFL Visual Locke WFL M7 OT- IP Mobility and Balance Start: 09/26/19 13:39 Freq: Status: Active Protocol: Document 09/26/19 13:39 CGR (Rec: 09/26/19 13:54 CGR [id number]) OT-Transfer Assessment Sit to and From Stand Sit to and from Stand Standby Assistance Transfers Transfer Ability Standby Assistance Technique Transfer Destination Chair,Toilet Transfer Technique Stand Step Pivot Devices Transfer Assistive Devices Gait Belt,Front Wheeled Walker Comments Mobility Comments for mobility around the room OT- Gait Assessment Gait Gait Assistance Required: Standby Assistance Assistive Devices Assistive Device Gait Belt,Front Wheeled Walker Comments Gait Ability Comments for mobility around the room. OT- Balance Assessment Sitting Balance and Reactions Static Sitting Balance Ability Good Dynamic Sitting Balance Ability Fair M8 OT- IP Objective Assessments Start: 09/26/19 13:39 Freq: Status: Active Protocol: Document 09/26/19 13:39 CGR (Rec: 09/26/19 13:54 CGR [id number]) OT Gross Range of Motion Upper Extremity Range of Motion Assessment Within Functional Limits OT Strength Upper Extremity Strength Assessment Within Functional Limits OT- Coordination Assessment Upper Extremity Finger to Nose Test Within Functional Limits Finger Tapping Test Within Functional Limits OT-Muscle Tone Assessment Muscle Tone WNL Yes OT Sensation Assessment Edema Edema Absent M9 OT- IP Assessment and Plan Start: 09/26/19 13:39 Freq: Status: Active Protocol: Document 09/26/19 13:39 CGR (Rec: 09/26/19 13:54 CGR [id number]) OT Summary Assessment and Plan Potential Rehabilitation Potential Excellent Analytic Complexity at Evaluation Low Summary OT Impairments Pain,Balance,Functional Mobility,Grooming,Dressing, Toileting,Bathing,Toilet Transfers,Shower Transfers Progress Towards Goals Progressing Toward Goals Assessment Summary Pt presents as a low complexity evaluation. Pt is s /p T11-L1 lami and doing well. Pt had a recent back surgery and states that he remembers his back precautions and how to use the hip kit. Pt would benefit from further review of home safety and shower. Recommend d/c home with family support. Goals Grooming Goal Independent Dressing Goal Independent,Licensing Officer,Sock Aid Toileting Goal Independent Bathing Goal Independent Toilet Transfer Goal Independent Shower Transfer Goal Independent Days to Meet Goals 2 Frequency of Treatment Frequency Of Treatment Once a Day Treatment Plan OT Treatment Plan ADL Training,Functional Mobility,Patient/Family Education,Discharge Planning Discharge Recommendations OT Discharge Recommendations Home with Assistance Home Equipment Needs No needs.
[2019-09-26 12:00] VITALS: BP 98/59; PULSE 66; RESP 20; TEMP 36.4; O2SAT 97
--- NOTE | 2019-09-26 14:03 | PT.IPTN ---
Current Diagnoses Polyneuropathy, unspecified (09/25/19) Spinal stenosis, thoracic region (09/25/19) Strain of muscle, fascia and tendon of lower back, subsequent encounter (09/25/19) Arthrodesis status (09/25/19) Surgery Performed Operation Date: 09/25/19 13:45 Actual Procedures p T11-L1 laminectomies(Not Applicable) - Basilio Mcbride MD Physical Therapy Treatment Note M2 PT-IP Current Condition Start: 09/26/19 09:45 Freq: NEEDED Status: Active Protocol: Document 09/26/19 13:50 NFW (Rec: 09/26/19 14:03 NFW [id number]) Physical Therapy Current Condition Precautions Lumbar Precautions Log Roll,No Twisting,Limit Bending,Lifting Restriction of 10 lbs,Gait Belt above Incisional Area Weight Bearing Status Weight Bearing Status Full Weight Bearing M3 PT-IP Subjective Start: 09/26/19 09:45 Freq: NEEDED Status: Active Protocol: Document 09/26/19 13:50 NFW (Rec: 09/26/19 14:03 NFW [id number]) Subjective Physical Therapy Visit Type Type Treatment Note Visit Start Time 13:20 Visit Stop Time 13:49 Total Visit Minutes 29 Notes Pt's present during treatment. Number of [employer] Visits 0 Physical Therapy Visit Comments Patient Comments Patient please with his current status. States he is already able to more than he could prior to surgery. Therapy Pain Assessment Pain Present Pain Present Denied Pain M4 PT-IP Mobility and Gait Start: 09/26/19 09:45 Freq: NEEDED Status: Active Protocol: Document 09/26/19 13:50 NFW (Rec: 09/26/19 14:03 NFW [id number]) PT-Bed Mobility Assessment Rolling Level of Assist Independent Supine to Sit Supine to Sit Independent Sit to Supine Sit to Supine Independent Scooting Scooting to Edge of Bed Independent PT-Transfer Assessment Sit to and From Stand Sit to and from Stand Independent Equipment Transfer Assistive Device Gait Belt,Front Wheeled Walker Orthotic/Prosthetic Devices or Brace: No Transfers Transfer Destination Bed,Chair Transfer Ability Level of Assist Independent Comments Mobility Comments Moving with confidence in transitional activities. Gait Assessment Gait Gait Assistance Required: Independent Distance (Feet) 650 Able to Maintain Weight Bearing Status Yes During Gait Assistive Devices Assistive Device Gait Belt,Straight Cane,Front Wheeled Walker Orthotic/Prosthetic Devices or Brace: No Gait Deviations General Gait Pattern Lateral Trunk Lean,Wide Based Gait Factors Limiting Gait Function Factors Limiting Gait Function Abnormal Tonal Influences, Decreased Activity Tolerance, Decreased Strength, Incoordination,Poor Balance Comments Gait Comments Ambulated 600' with FWW for balance assist and not support . No complaints of pain in lumbar spine with activity. Continues to reveal ricardo. medial list. This deviation is accentuated with use of SPC or with no assistive device. Min. heel to toe progression noted during stance. Stair Climbing Assessment Evaluation Level of Assist On Stairs Standby Assistance Devices Stair Climbing Assistive Devices Front Wheel Walker Technique/Endurance Stair Climbing Direction Ascend and Descend Stair Climbing Technique Step to Step Stair Climbing Set # Repetitions (reps) 1 Comments Stair Climbing Comments Patient does not have stairs but instruction on up and down curbs. Performed safely. PT-Balance Assessment Sitting Balance and Reactions Static Sitting Balance Ability Normal Dynamic Sitting Balance Ability Normal Standing Balance and Reactions Static Standing Balance Ability Good Dynamic Standing Balance Ability Fair Device Used FWW M5 PT-IP Objective Assessments Start: 09/26/19 09:45 Freq: NEEDED Status: Active Protocol: Document 09/26/19 09:46 NFW (Rec: 09/26/19 10:23 NFW [id number]) Orientation Orientation/Cognition Level of Alertness Alert Orientation Name,Place,Situation Language Function Ability No Deficits Noted Safety Awareness Understands Safety Issues Memory Description No Deficits Noted Gross Range of Motion Upper Extremity ROM Assessment Within Functional Limits Strength Lower Extremity Strength Assessment Bilaterally Impaired Hip 3/3 in general for Glut med ricardo left weaker than right Knee 5/5 right; 4/5 left Ankle DF 2/5 ricardo. left weaker; PF 3/ 5 left weaker Comments Strength Comments Patient reports that he has a long history of weakness into ankles and just recently was able to actively dorsiflex. Sensation Assessment Sensation Gross Sensation WNL Muscle Tone Muscle Tone WNL Yes M6 PT-IP Treatment Start: 09/26/19 09:45 Freq: NEEDED Status: Active Protocol: Document 09/26/19 13:50 NFW (Rec: 09/26/19 14:03 NFW [id number]) Physical Therapy Treatment Education Education Provided Precautions,Safety Other Treatments Other Treatment Performed Recommended to not sit for extended periods of time. Recommended to start on a gentle walking program on the level using his FWW. M7 PT-IP Assessment and Plan Start: 09/26/19 09:45 Freq: NEEDED Status: Active Protocol: Document 09/26/19 13:50 NFW (Rec: 09/26/19 14:03 NFW [id number]) PT Summary Assessment and Plan Potential Rehabilitation Potential Excellent Status of Condition at Evaluation Stable Summary Impairments Strength,Balance,Coordination, Activity Tolerance Progress Towards Goals Progressing Toward Goals,Safe For Discharge Assessment Summary Pt revealing good form with transitional activities and improved form with ambulation. He has residual weaknesses noted proximally in the hips as well as his ankles. Could benefit from OPPT. Treatment Plan Physical Therapy Treatment Plan Bed Mobility Training,Transfer Training,Gait Training, Therapeutic Exercise,Balance Retraining,Post Op Education, Discharge Planning,Hot or Cold Pack,Neuromuscular Re-ed, Coordination Retraining,Manual Therapy Recommendations To Nursing Amount of Assist Needed Independent Discharge Recommendations PT Discharge Recommendations Home with Assistance
--- NOTE | 2019-09-26 15:00 | PC.NURSE ---
Day shift- Pt states wanting to go home, No voiced concerns, using cane for ambulation. Mid back dressing changed at 1400. Incision approximated as can be seen under medicated gauze along incision. surrounding area cleansed with NS, pat dry. Coversite placed and extra coversite given as pt will shower and change dressing POD #5 per oder. Pt tolerated well. Has all belongings. Pt's present to drive pt home. Discharge summary packet reviewed with pt and his , no voiced concerns, pt states has follow up appointment made for in 1.5 weeks. Oxycodone po prn given to pt prior to discharge for settling at home, rates 4/10 pain aching to incision area throughout shift. Pt left unit via wheelchair in no distress at 1433 with [employer] escort.
--- NOTE | 2019-09-26 15:24 | CM.DANOTE ---
DCP Brief Note Patient is a 68 year old male who was admitted [facility] on 09/25/19 for [facility]. Pt has M[employer] and [employer] for insurance and his PCP is Dr. Umaña. EMR was reviewed. Per Ortho MD, pt tolerated procedure well and making good progress with no pain management issues and can likely d/c home tonight or tomorrow pending PT eval. Per PT, pt completed CG training with spouse and stairs and recommending safe d/c home with assist. Per RN, pt likely to d/c home tonight and no needs at this time. Due to triage needs, no bedside assessment completed at this time. Plan: SW to follow for possible d/c home tonight via spouse POV with no SW needs at this time. If pt remains overnight, SW to completed bedside assessment for likely home with spouse at d/c. DILMA Epstein
== END 2019-09-26 14:33 | disposition home or self-care (01) ==
LOC: OR 12:00 → AC 12:01
PROVIDERS: PCP Internal Medicine; Visit Provider Orthopaedic Surgery
PROC: (CPT 63046; principal; 2019-09-25 13:45)
DX: M48.04 Spinal stenosis, thoracic region (principal); G62.9 Polyneuropathy, unspecified; Z98.1 Arthrodesis status; G95.89 Other specified diseases of spinal cord; E66.01 Morbid (severe) obesity due to excess calories; G47.30 Sleep apnea, unspecified; E03.9 Hypothyroidism, unspecified; I25.10 Atherosclerotic heart disease of native coronary artery without angina pectoris; J44.9 Chronic obstructive pulmonary disease, unspecified; Z68.41 Body mass index [BMI] 40.0-44.9, adult; D17.79 Benign lipomatous neoplasm of other sites
CPT/HCPCS: 63046; 63048; 36415; 72100; 76000; 80048; 85014; 85018; 97116; 97162; 97165; 97530; 97535; J0330; J0690; J1885; J2405; J2704; J3010

== ENCOUNTER → 2020-04-28 15:55 | Outpatient (CLI) | payer MEDICARE, SELFPAY ==
[2019-09-25 17:09] VITALS: BMI 41.6
[2020-04-28 17:31] LABS: Blood Urea Nitrogen 32 mg/dL (9-20); Calcium 9.3 mg/dL (8.4-10.2); Carbon Dioxide 27 mmol/L (22-32); Chloride 103 mmol/L (98-107); Cholesterol 163 mg/dL (140-199); Estimated Glomerular Filt Rate 50.5 mL/min (>60); Glucose 119 mg/dL (80-110); HDL Cholesterol 28 mg/dL (40-60); HEMOLYSIS 20 (0-50); LDL Cholesterol Calculated 69 mg/dL (<100); Potassium 4.2 mmol/L (3.4-5.1); Sodium 138 mmol/L (137-145); Triglycerides 329 mg/dL (35-150)
[2020-04-28 17:59] LABS: TSH w/ Reflex to FT4 0.04 uIU/mL (0.47-4.68)
[2020-04-28 18:28] LABS: Free T4, Direct Thyroxine 1.56 ng/dL (0.78-2.19)
== END ==
PROVIDERS: PCP Internal Medicine; Referring Provider Internal Medicine; Visit Provider Internal Medicine
DX: I25.10 Atherosclerotic heart disease of native coronary artery without angina pectoris (principal); E78.00 Pure hypercholesterolemia, unspecified; N18.9 Chronic kidney disease, unspecified; E03.9 Hypothyroidism, unspecified
CPT/HCPCS: 36415; 80048; 80061; 84439; 84443

== ENCOUNTER → 2020-06-28 10:34 | Outpatient (CLI) | payer MEDICARE, SELFPAY ==
[2019-09-25 17:09] VITALS: BMI 41.6
[2020-06-28 11:56] LABS: BUN Creatinine Ratio 15.3 (6-22); Blood Urea Nitrogen 20 mg/dL (9-20); Calcium 9.2 mg/dL (8.4-10.2); Carbon Dioxide 30 mmol/L (22-32); Chloride 102 mmol/L (98-107); Estimated Glomerular Filt Rate 54.1 mL/min (>60); Glucose 98 mg/dL (80-110); HEMOLYSIS < 15 (0-50); Potassium 4.5 mmol/L (3.4-5.1); Sodium 139 mmol/L (137-145)
== END ==
PROVIDERS: PCP Internal Medicine; Referring Provider Internal Medicine; Visit Provider Internal Medicine
DX: J44.9 Chronic obstructive pulmonary disease, unspecified (principal)
CPT/HCPCS: 36415; 80048